=== PATIENT | female | born 1985 | race Caucasian/White ===

== ENCOUNTER 2022-01-20 12:52 | Outpatient (CLI) | payer OTHER, SELFPAY ==
--- NOTE | 2022-01-20 13:00 | CRLHL7_ITS ---
For Patients: As a result of the Century Cures Act, medical imaging exams and procedure reports are released immediately into your electronic medical record. You may view this report before your referring provider. If you have questions, please contact your health care provider. INDICATION: Third trimester scan, evaluate growth. Size less than dates. COMPARISON: 09/17/2021 TECHNIQUE: Real time rivero scale imaging of the fetus was performed. FINDINGS: Sonographic imaging demonstrates a single living intrauterine gestation. Fetus demonstrates a regular cardiac rate of 141 beats per minute. Fetus has a vertex position. The placenta lies anteriorly. Amniotic fluid volume appears normal and there is a single deepest vertical pocket: 3.5 cm. The estimated weight is 3033gm which lies at the 33rd %. On the prior OB ultrasound exam dated 09/17/2021 the estimated weight was at the 89th%. BPD 28th percentile. HC 6th percentile. AC 62nd percentile. FL 4th percentile. The HC/AC ratio measures 0.95 range (0.92-1.07). IMPRESSION: Sonographic gestational age 36 weeks 3 days and sonographic due date 02/14/2022. Sonographic age 10 days behind the clinical age. Estimated weight 33rd percentile. Abdominal circumference 62nd percentile. Dictated by Jamal Plummer MD @ 01/20/2022 3:00:40 PM (Electronically Signed)
== END 2022-01-20 12:53 | disposition home or self-care (01) ==
LOC: US 12:53
PROVIDERS: Visit Provider Advanced Practice Midwife
DX: O36.5930 Maternal care for other known or suspected poor fetal growth, third trimester, not applicable or unspecified (principal); Z3A.36 36 weeks gestation of pregnancy
CPT/HCPCS: 76816

== ENCOUNTER 2022-02-03 13:22 | Inpatient (IN) | payer OTHER, SELFPAY ==
[2022-02-03] VITALS (45 sets, daily range): BP systolic 118–185; BP diastolic 63–113; PULSE 69–94; TEMP 36.6–36.8; O2SAT 100; BMI 28.2
--- NOTE | 2022-02-03 12:15 | CRLHL7_ITS ---
For Patients: As a result of the Century Cures Act, medical imaging exams and procedure reports are released immediately into your electronic medical record. You may view this report before your referring provider. If you have questions, please contact your health care provider. INDICATION: Third trimester growth check. TECHNIQUE: Ultrasound OB pelvis transabdominal. Real-time rivero-scale imaging of the fetus was performed without stress testing. COMPARISON: January 20, 2022. FINDINGS: Sonographic imaging demonstrates a single living intrauterine gestation. Fetus demonstrates a regular cardiac rate of 131 beats per minute. Fetus has a cephalic orientation. Placenta is anterior. Biometric measurements: Biparietal diameter: 36 weeks 4 days. Head circumference: 37 weeks 3 days. Abdominal circumference: 37 weeks 0 days. Femur length: 36 weeks 5 days. Estimated weight: 3082, 13th percentile. Estimated ultrasound age by today`s measurements is 37 weeks 0 days with an estimated date of delivery February 24, 2022. Amniotic fluid volume appears low with the single deepest pocket of 1.7 cm. Gross body movements and tone were observed. Respiratory activity was not observed. IMPRESSION: Single viable intrauterine with a biophysical profile 4/8. respiratory activity and normal amniotic fluid volume not demonstrated. There is a 2 week discrepancy between ultrasound and clinical dating. Dictated by Nick Carmona MD @ 02/03/2022 1:47:40 PM (Electronically Signed)
--- NOTE | 2022-02-03 13:58 | W.PM.LDBA ---
Subjective History of Present Illness Time Seen by Provider: 13:45 Date Seen: 02/03/22 Narrative: Patient is being admitted to Labor and Delivery for an IOL. She is a 36 year old at 39.6 weeks gestation. Her full history and physical was dictated by Yolette Bowers on 01/15/22. Please see this for details. Pt was seen for u/s today. U/s for BPP and growth (for hx of measuring small for dates) were ordered for 41 weeks, but scheduled for today instead. BPP noted to be 4/8, with points off for breathing and fluid. Larger pockets of fluid were noted, but all contained cord. MARY 5.1, just barely not oligo, but SDP 1.7 indicating oligo. Growth also done, and EFW % down to 13 from 33 on 01/20/22. EFW 6 lb 13 oz. Yolette Valiente consulted Dr. Bhavesh [place], and decision made to proceed with IOL. Partner at bedside for support. Pt also desired a waterbirth, CNM reviewed concerns r/t change in growth and low fluid. Decision made to not proceed with waterbirth. OB Problem List 1. Anxiety Therapy referral 08/27/2021 Patient did not do counseling. On 11/12/2021: Reported anxiety was much better 2. Measuring small for dates at 37.1 weeks. US 01/20: EFW 33% H & P done 01/15/22 by Yolette Bowers OB - H&P: Exam Physical Exam: Vital signs: Temp Pulse BP Pulse Ox 98 F 82 157/99 H 100 02/03/22 13:38 02/03/22 13:47 02/03/22 13:47 02/03/22 13:37 Constitutional: Constitutional: no acute distress and cooperative Routine HEENT Exam: Head: Present normal inspection and normocephalic Routine Neck Exam: Neck: Present full ROM Routine Respiratory Exam: Respiratory: Present CTA bilaterally Routine Cardiovascular Exam: Cardiovascular: RRR Routine Abdominal Exam: Abdominal: Present soft (gravid) Routine Exam: External: Present normal external exam Detailed Labor and Delivery Exam: Patient Gravid: yes Dilation (cm): 0 (Fingertip) Effacement (%): 30 Cervix position: mid Consistency: firm Contraction frequency (min): 3 (3-6 minutes) Contraction intensity: Mild Fetus (Single): Station: 0 Heart Rate Baseline: 125 Monitor Accelerations: Present Monitor Decelerations: None Custodial Variability: Average (6-10) (Min - mod variability) Routine Extremities Exam: Extremities: Present full ROM and pedal edema (+1) Routine Back/Spine/Pelvis Exam: Back/Spine: full ROM Routine Skin Exam: Present intact Routine Neurological Exam: Present oriented X3 Routine Psychiatric Exam: Present normal affect OB - Problem Based A/P Additional Plan (1) : Status: Acute Plan Assessment: at 39.6 weeks GBS negative IOL for oilgo and BPP 4/8 r/o preeclampsia Measuring small for dates, but otherwise uncomplicated Plan: 1. Admit to L & D for IOL 2. Reviewed options for cervical ripening, including risks and benefits. Decision made to proceed with vaginal cytotec q 4 hours per protocol. Pt agrees with plan. 3. Pt candidate for analgesia of choice. Planning unmedicated at this time. 4. Desires waterbirth. Reviewed concerns r/t oligo, BPP, and rapid change in EFW percentile. Pt agrees to no waterbirth. 5. Continuous monitoring r/t oligo and BPP score. 6. IV access 7. BPs elevated on admit. Will draw labs and continue to monitor. 8. Anticipate progress to NVD. Delivery/Labor/Induction Plan Plan: induction Induction method: per misoprostol protocol (Vaginal, Q 4 hours)
[2022-02-03 15:04] LABS: Hematocrit 38.8 % (33.0-51.0); Hemoglobin* 12.8 gm/dL (12.0-16.0); Mean Corpuscular HGB Conc 33 gm/dL (32-36); Mean Corpuscular Hemoglobin 29 pg (26-34); Mean Corpuscular Volume 87 fL (80-100); Platelet Count* 217 K/uL (140-440); Red Blood Count 4.48 m/uL (4.00-5.20); White Blood Count* 8.96 K/uL (4.50-11.00)
[2022-02-03 15:07] LABS: Slide Review Reflex No
[2022-02-03 15:22] LABS: Creatinine Urine 240.6 mg/dL
[2022-02-03 15:28] LABS: INR 0.84 (0.91-1.10); Prothrombin Time 11.9 Seconds
[2022-02-03 15:30] LABS: Alanine Aminotransferase* 17 U/L (4-35); Aspartate Amino Transferase* 28 U/L (12-35); Blood Urea Nitrogen* 12 mg/dL (5-24); Creatinine* 0.6 mg/dL (0.5-1.5); Est. Creatinine Clearance* 123.68; Estimated Glomerular Filt Rate 121 ml/min; Fibrinogen* 466 mg/dL (200-450)
[2022-02-03 15:47] LABS: Total Protein Urine 1836 mg/dL
[2022-02-03 16:01] LABS: SARS PCR* Negative SARS-CoV-2 (Negative)
[2022-02-03] MEDS: miSOPROStoL 25 MCG/0.25 TABLET VAGINAL ×2 (16:35→21:08)
[2022-02-03] MEDS: LABETALOL HCL 5 MG/ML inj IVP ×2 (17:03→18:47)
--- NOTE | 2022-02-03 17:22 | PM.OBPNL ---
Pain Control Time Seen by Provider: 17:00 Date Seen: 02/03/22 Pain control: tolerating well Contractions Contraction frequency: 3 (3-5 minutes) Contraction pattern: Regular Contraction intensity: Mild (Pt states she is feeling them, but mild and tolerable) Pelvic Exam Comments: Exam deferred at this time. First dose of cytotec recently given Assessment and Plan Assessment: induction ongoing Plan: other (Elevated BP pathway started) Comments: Subjective: BP noted to be elevated repeatedly. Previously consulted w/ Dr. Elizalde about management plan based on BPs. Arrived on L & D and RNs already proceeding with orders from Dr. Elizalde r/t BPs. Reviewed plan w/ pt. Pt denies any headache, vision changes or epigastric pain. Partner has returned and is at her bedside for support. Pt remains comfortable at this time, but is feeling some mild ctx. Objective: Bps 150s-160s/90-100s. FHTs: 130, min - mod variability. Rare early or variable decel. Occ accels noted Ctx q 3-5 min, mild SVE: deferred Labs: AST & ALT WNL. P/C ratio elevated, 7.6 Platelets WNL Assessment & Plan Start BP elevated pathways per Dr. Elizalde's orders, including IV labetalol & starting magnesium sulfate. Pt aware of plan. Dr. Elizalde and OBs to assume care. Orders given to start cytotec as previously ordered.
[2022-02-03 21:38] LABS: Hematocrit 36.3 % (33.0-51.0); Hemoglobin* 11.8 gm/dL (12.0-16.0); Mean Corpuscular HGB Conc 33 gm/dL (32-36); Mean Corpuscular Hemoglobin 28 pg (26-34); Mean Corpuscular Volume 87 fL (80-100); Platelet Count* 206 K/uL (140-440); Red Blood Count 4.16 m/uL (4.00-5.20); White Blood Count* 8.44 K/uL (4.50-11.00)
[2022-02-03 21:49] LABS: Slide Review Reflex No
[2022-02-03 21:54] LABS: Alanine Aminotransferase* 19 U/L (4-35); Aspartate Amino Transferase* 26 U/L (12-35); Blood Urea Nitrogen* 10 mg/dL (5-24); Creatinine* 0.7 mg/dL (0.5-1.5); Est. Creatinine Clearance* 106.01; Estimated Glomerular Filt Rate 116 ml/min
[2022-02-03 21:55] LABS: Fibrinogen* 406 mg/dL (200-450); INR 0.89 (0.91-1.10); Prothrombin Time 12.5 Seconds
[2022-02-03 22:03] LABS: Magnesium* 5.2 mg/dL (1.5-2.6)
[2022-02-04] VITALS (38 sets, daily range): BP systolic 119–198; BP diastolic 68–125; PULSE 73–187; RESP 14–16; TEMP 36.4–36.7; O2SAT 91–100
[2022-02-04] MEDS: miSOPROStoL 25 MCG/0.25 TABLET VAGINAL ×2 (01:28→05:25)
--- NOTE | 2022-02-04 02:16 | PM.OBPNL ---
Pain Control Time Seen by Provider: 01:39 Date Seen: 02/04/22 Comments: I was contacted by RN with concern over decreased variability of heart rate tracing. Upon entering the Center, baseline was 120 with moderate variability. RN had atempted scalp stim, but was unable to reach the cervical os. Of note, patient then had markedly elevated BP to 170s systolic, after having had 6 hours below severe range. Single dose of labetalol was given. Contractions Monitor mode: External Contraction frequency: 3 (3-5 minutes) Contraction pattern: Regular Contraction intensity: Mild (Pt states she is feeling them, but mild and tolerable) Fetus (Single) status: Category l Comments: Around midnight, there was an episode of minimal variability. No decelerations, no accelerations. Baseline 120. Thereafter, variability increased and is now moderate. Assessment and Plan Assessment: prodromal labor Comments: woman at 40 weeks' gestation with severe preeclampsia. HELLP labs normal. Now s/p three doses of intravaginal cytotec for ripening. status is currently reassuring. Previous minimal variability was likely sleep cycle coupled with magnesium. Continue cytotec for ripening.
[2022-02-04] MEDS: ACETAMINOPHEN 500 MG TABLET 1000 MG PO (02:45)
[2022-02-04] MEDS: LACTATED RINGERS 1000 ML 1,000 ML 1200 ML IV (07:32)
[2022-02-04] MEDS: LABETALOL HCL 5 MG/ML inj IVP ×3 (07:42→08:35)
--- NOTE | 2022-02-04 07:48 | PM.OBPNL ---
Pain Control Time Seen by Provider: 07:48 Date Seen: 02/04/22 Comments: In a significant amount of pain w/ contractions. Requesting an epidural. There was a deceleration to the 90's that lasted approximately 6 minutes. I placed a scalp electrode. The heart rate had an acceleration to the 130's with placement of the FSE so status is reassuring. The patient is receiving a 500ml bolus of IVF for prior to the epidural. Stat labs ordered: AST, ALT, Creat, BUN, Fibrinogen, PT/INR, PTT, CBC w/o diff. Then repeat Q 6hr. Magnesium for seizure prophylaxis is at 2gm/hr. The patient has received 4 doses of vaginal cytotec. Contractions Monitor mode: External Contraction frequency: 2 (3-5 minutes) Contraction pattern: Regular Contraction intensity: Strong/Firm (Pt states she is feeling them, but mild and tolerable) Pelvic Exam Dilation (cm): 5 Effacement (%): 100 Station: 0 Comments: SROM at approximately 7:30am clear fluid Fetus (Single) Amniotic Membrane Status: SROM status: Category ll Assessment and Plan Assessment: active labor Plan: continue present management Comments: 36yo at 40w0d undergoing IOL for severe preeclampsia. FSE in place 500ml bolus for epidural BP 163/104 then 198/89 receiving IV labetalol per htn protocol Stat labs as above. Expect vaginal delivery.
[2022-02-04 08:25] LABS: Alanine Aminotransferase* 62 U/L (4-35); Aspartate Amino Transferase* 31 U/L (12-35); Blood Urea Nitrogen* 9 mg/dL (5-24); Creatinine* 0.6 mg/dL (0.5-1.5); Est. Creatinine Clearance* 123.68; Estimated Glomerular Filt Rate 121 ml/min
[2022-02-04 08:26] LABS: Fibrinogen* 470 mg/dL (200-450); INR 0.87 (0.91-1.10); Prothrombin Time 12.2 Seconds
[2022-02-04 08:30] LABS: Hematocrit 39.4 % (33.0-51.0); Hemoglobin* 12.9 gm/dL (12.0-16.0); Mean Corpuscular HGB Conc 33 gm/dL (32-36); Mean Corpuscular Hemoglobin 28 pg (26-34); Mean Corpuscular Volume 87 fL (80-100); Platelet Count* 223 K/uL (140-440); Red Blood Count 4.55 m/uL (4.00-5.20); White Blood Count* 10.23 K/uL (4.50-11.00)
[2022-02-04] MEDS: LIDOCAINE 1 % PF 30 ML INJECTION (08:37)
[2022-02-04 08:42] LABS: Slide Review Reflex No
[2022-02-04] MEDS: OXYTOCIN 30 unit/500 ML in NS 30 UNIT/500 ML BAG 300 UNIT IVPB (08:44)
[2022-02-04] MEDS: NIFEdipine 10 MG CAPSULE PO (08:49)
--- NOTE | 2022-02-04 09:28 | P.OBPRC_ITS ---
Procedure Delivery date: 02/04/22 Procedure Done: Global (Vaccuum assisted vaginal delivery. Global) Procedure Details: Vacuum assisted vaginal delivery. Events: Pre-Eclampsia, Labor Induction and Meconium Stained Fluid (Terminal meconium) Intrapartal Events: Labor Induction (4 doses of vaginal Cytotec) Induction method: per misoprostol protocol Delivery monitor: external uterine and internal FHT Route of delivery: vacuum extraction Indication for instrumentation: nonreassuring FHR tracing Episiotomy description: None Laceration description: Perineal - 2nd Degree Delivery repair: Vicryl Anesthesia type: Nitrous gas Disposition: floor Narrative: Kimberly is a 36 year-old G 1 P 0 now 2 admitted on 02/03/2022 at 4:00 p.m. at 39 Weeks, so 6 Days gestation for induction of labor due to severe preeclampsia Cervical exam on admission was 0 cm/50 % effaced/-2 station with membranes intact in vertex presentation. Contractions were every 2-6 minutes. he art rate demonstrated baseline 120s bpm with moderate variability, positive accelerations, negative decelerations; a category 1 tracing. S from occurred on 02/04/2022 at 7:15 a.m. with clear fluid. Labor Analgesia: Nitrous Pitocin: No Labor onset: 02/04/2022 at 4:00 a.m.. Complete: 02/04/2022 at 8:00 a.m.. Pushin02/04/2022 at 8:06 a.m.. heart tones during second stage were: Moderate variability and over the course of the 2nd stage there were recurrent late decelerations to the 70s. Verbal consent was obtained to perform a vacuum assisted vaginal delivery. Lidocaine jelly was applied to the vaginal canal. The kiwi vacuum was applied to the occiput 2-3 cm above the posterior fontanelle. The pressure was increased to the yellow portion of the pressure gauge. The was delivered over a second-degree laceration with the pressure increased to the green area during the contraction and pulling. The delivered with 1 pull/1 contraction, no pop offs total time pulling 70 seconds. At 8:44 a.m. a viable female infant delivered in vertex direct OA presentation over second-degree perineal laceration via vacuum assisted vaginal delivery. There was terminal meconium noted was immediately clamped clamped and cut and the handed to waiting nursing and pediatric staff for stabilization. Please see Verónica Domingos, CNNP. Infant weight 6 lb 3 oz, small for gestational age 5 at 1 minute, 8 at 5 minutes and 8 at 10 minutes, respectively. Shoulder dystocia: No. Nuchal cord: No Placenta delivered spontaneously and complete at 8:57 a.m. with a 3 vessel cord. Laceration(s): Second-degree perineal. Repaired using 3-0 Vicryl suture suture in a/the usual manner. Blood loss: 50 mL. Blood loss measurement type: Quantitative Sponge and needles counts are correct. Specimen: Placenta Mother and were stable after delivery. 's name: Malu Webster The patient is planning on breast feeding. Quinn Infant Infant Gender: Female presentation: vertex Placental Delivery Description: Spontaneous Cord Description: 3 Vessels OB Vag Delivery Procedures Additional Procedures ECV: No Cook Catheter Insertion: No NST: No D&C: No Laceration Repair: Yes Tubal Ligation : No Other: No
[2022-02-04] MEDS: LACTATED RINGERS 1000 ML 1,000 ML 75 ML IV ×2 (10:52→23:21)
[2022-02-04] MEDS: IBUPROFEN 600 MG TABLET PO ×2 (13:52→20:04)
[2022-02-04] MEDS: LABETALOL HCL 100 MG TABLET 200 MG PO ×2 (14:13→20:16)
[2022-02-04 14:15] LABS: Hematocrit 35.7 % (33.0-51.0); Hemoglobin* 11.8 gm/dL (12.0-16.0); Mean Corpuscular HGB Conc 33 gm/dL (32-36); Mean Corpuscular Hemoglobin 29 pg (26-34); Mean Corpuscular Volume 86 fL (80-100); Platelet Count* 214 K/uL (140-440); Red Blood Count 4.13 m/uL (4.00-5.20); White Blood Count* 14.31 K/uL (4.50-11.00)
[2022-02-04 14:18] LABS: Slide Review Reflex No
[2022-02-04 14:25] LABS: Creatinine* 0.6 mg/dL (0.5-1.5); Est. Creatinine Clearance* 5.85; Estimated Glomerular Filt Rate 121 ml/min
[2022-02-04 14:26] LABS: Alanine Aminotransferase* 20 U/L (4-35); Aspartate Amino Transferase* 36 U/L (12-35); Blood Urea Nitrogen* 10 mg/dL (5-24)
[2022-02-04 15:34] LABS: Magnesium* 6.7 mg/dL (1.5-2.6)
[2022-02-04 19:53] LABS: Hematocrit 31.6 % (33.0-51.0); Hemoglobin* 10.7 gm/dL (12.0-16.0); Immature Granulocytes Abs Auto 0.01 K/uL (0.00-0.30); Lymphocytes Percent Auto 15.4 % (20-44); Mean Corpuscular HGB Conc 34 gm/dL (32-36); Mean Corpuscular Hemoglobin 29 pg (26-34); Mean Corpuscular Volume 86 fL (80-100); Monocytes Percent Auto 4.5 % (0.0-11.0); Platelet Count* 188 K/uL (140-440); RDW Coefficient of Variation % 15.3 % (11.5-15.5); Red Blood Count 3.69 m/uL (4.00-5.20)
[2022-02-04 19:57] LABS: Slide Review Reflex No
[2022-02-04 20:08] LABS: Alanine Aminotransferase* 18 U/L (4-35); Aspartate Amino Transferase* 34 U/L (12-35); Blood Urea Nitrogen* 12 mg/dL (5-24); Creatinine* 0.7 mg/dL (0.5-1.5); Est. Creatinine Clearance* 106.01; Estimated Glomerular Filt Rate 116 ml/min
[2022-02-04 20:16] LABS: Magnesium* 6.5 mg/dL (1.5-2.6)
[2022-02-05] VITALS (7 sets, daily range): BP systolic 134–154; BP diastolic 83–96; PULSE 68–83; RESP 16–18; TEMP 36.6–37.1; O2SAT 95–97
[2022-02-05 04:20] LABS: Hematocrit 33.7 % (33.0-51.0); Hemoglobin* 11.2 gm/dL (12.0-16.0); Mean Corpuscular HGB Conc 33 gm/dL (32-36); Mean Corpuscular Hemoglobin 29 pg (26-34); Mean Corpuscular Volume 87 fL (80-100); Platelet Count* 163 K/uL (140-440); Red Blood Count 3.88 m/uL (4.00-5.20); White Blood Count* 7.58 K/uL (4.50-11.00)
[2022-02-05 04:21] LABS: Slide Review Reflex No
[2022-02-05] MEDS: IBUPROFEN 600 MG TABLET PO ×2 (04:25→14:40)
[2022-02-05 04:36] LABS: Aspartate Amino Transferase* 35 U/L (12-35); Creatinine* 0.6 mg/dL (0.5-1.5); Est. Creatinine Clearance* 123.68; Estimated Glomerular Filt Rate 121 ml/min
[2022-02-05 04:37] LABS: Alanine Aminotransferase* 18 U/L (4-35); Blood Urea Nitrogen* 10 mg/dL (5-24)
[2022-02-05] MEDS: LABETALOL HCL 100 MG TABLET 200 MG PO ×2 (08:51→14:40)
[2022-02-05] MEDS: CITALOPRAM HYDROBROMIDE 20 MG TABLET PO ×2 (08:52→08:53)
--- NOTE | 2022-02-05 08:58 | P.OBPN_ITS ---
OB - PN:Subj Subjective Time Seen by Provider: 08:58 Date Seen: 02/05/22 Interval history: The patient is a 36 year old G 1 P 1001 who was admitted to to the Center on 02/03/22 for induction of labor. She was diagnosed with severe preeclampsia intrapartum and started on magnesium sulfate infusion. She had an uncomplicated vacuum assisted vaginal delivery. She delivered a viable female infant. She is breast feeding. the patient has done well. She feels little tired, but denies headaches or right upper quadrant pain. Her urine output has begun to increase this morning. She still has a positive fluid balance, but is down 1 lb since yesterday. Patient comments OB post-: no complaints [place] status: and doing well [place] feeding status: exclusively OB - PN: Obj Exam Physical Exam: Vital signs: Temp Pulse Resp BP Pulse Ox 98.1 F 83 18 154/84 H 95 02/05/22 08:14 02/05/22 08:14 02/05/22 08:14 02/05/22 08:14 02/05/22 08:14 Constitutional: Constitutional: no acute distress and cooperative Routine Abdominal Exam: Abdominal: Present soft; Absent tenderness Fundus: Present firm Routine Extremities Exam: Extremities: Present pedal edema (1+) Routine Psychiatric Exam: Psychiatric: Present normal affect OB - PN: Obj Data Labs Labs: Laboratory Results - last 24 hr 02/04/22 02/04/22 02/04/22 14:03 14:03 14:03 WBC 14.31 H RBC 4.13 Hgb 11.8 L Hct 35.7 MCV 86 MCH 29 MCHC 33 RDW Coeff of Diane Plt Count 214 Neut % (Auto) Lymph % (Auto) [place] % (Auto) Eos % (Auto) Baso % (Auto) Neut # (Auto) Lymph # (Auto) [place] # (Auto) Eos # (Auto) Baso # (Auto) Abs Immat Gran (auto) BUN 10 Creatinine 0.6 Estimated Creat Clear 5.85 Estimated GFR 121 Magnesium 6.7 H* AST 36 H ALT 20 02/04/22 02/04/22 02/05/22 19:49 19:49 04:15 WBC 10.10 7.58 RBC 3.69 L 3.88 L Hgb 10.7 L 11.2 L Hct 31.6 L 33.7 MCV 86 87 MCH 29 29 MCHC 34 33 RDW Coeff of Diane 15.3 Plt Count 188 163 Neut % (Auto) 80.0 H Lymph % (Auto) 15.4 L [place] % (Auto) 4.5 Eos % (Auto) 0.0 Baso % (Auto) 0.0 Neut # (Auto) 8.10 H Lymph # (Auto) 1.60 [place] # (Auto) 0.50 Eos # (Auto) 0.00 Baso # (Auto) 0.00 Abs Immat Gran (auto) 0.01 BUN 12 Creatinine 0.7 Estimated Creat Clear 106.01 Estimated GFR 116 Magnesium 6.5 H* AST 34 ALT 18 02/05/22 04:15 WBC RBC Hgb Hct MCV MCH MCHC RDW Coeff of Diane Plt Count Neut % (Auto) Lymph % (Auto) [place] % (Auto) Eos % (Auto) Baso % (Auto) Neut # (Auto) Lymph # (Auto) [place] # (Auto) Eos # (Auto) Baso # (Auto) Abs Immat Gran (auto) BUN 10 Creatinine 0.6 Estimated Creat Clear 123.68 Estimated GFR 121 Magnesium AST 35 ALT 18 OB - PN: A/P Vaginal Delivery Assessment and Plan (1) Severe preeclampsia: Status: Acute (2) Vacuum-assisted delivery, delivered, current hospitalization: Status: Acute Plan The patient has just begun to diurese, but still has a positive fluid balance. I would recommend continuing the magnesium sulfate infusion for few more hours well watching urine output. Continue to monitor blood pressures. Plan day: 1 Plan: routine care
[2022-02-05] MEDS: FEXOFENADINE 180 MG TABLET PO (10:49)
[2022-02-05] MEDS: DOCUSATE SODIUM 100 MG CAPSULE PO (14:39)
[2022-02-05] MEDS: LABETALOL HCL 100 MG TABLET 300 MG PO (20:52)
[2022-02-06] MEDS: IBUPROFEN 600 MG TABLET PO ×3 (02:48→18:46)
[2022-02-06 03:05] VITALS: BP 168/103
[2022-02-06 03:19] VITALS: BP 155/91; PULSE 70; RESP 16; TEMP 36.4; O2SAT 97
[2022-02-06 06:22] LABS: Hematocrit 37.3 % (33.0-51.0); Hemoglobin* 11.8 gm/dL (12.0-16.0); Mean Corpuscular HGB Conc 32 gm/dL (32-36); Mean Corpuscular Hemoglobin 28 pg (26-34); Mean Corpuscular Volume 89 fL (80-100); Platelet Count* 220 K/uL (140-440); Red Blood Count 4.18 m/uL (4.00-5.20); White Blood Count* 8.13 K/uL (4.50-11.00)
[2022-02-06 06:30] LABS: Slide Review Reflex No
[2022-02-06 06:42] LABS: Alanine Aminotransferase* 16 U/L (4-35); Aspartate Amino Transferase* 31 U/L (12-35); Blood Urea Nitrogen* 11 mg/dL (5-24); Creatinine* 0.7 mg/dL (0.5-1.5); Est. Creatinine Clearance* 106.01; Estimated Glomerular Filt Rate 116 ml/min
[2022-02-06 08:15] VITALS: BP 155/102; PULSE 71; RESP 16; TEMP 37.2; O2SAT 97
[2022-02-06] MEDS: DOCUSATE SODIUM 100 MG CAPSULE PO (08:30)
[2022-02-06] MEDS: FEXOFENADINE 180 MG TABLET PO (08:30)
[2022-02-06] MEDS: CITALOPRAM HYDROBROMIDE 20 MG TABLET PO (08:31)
[2022-02-06] MEDS: LABETALOL HCL 100 MG TABLET 400 MG PO ×3 (08:31→21:01)
[2022-02-06] MEDS: NIFEdipine 30 MG TAB.ER.24 60 MG PO (08:31)
--- NOTE | 2022-02-06 11:24 | PM.OBPNVD1 ---
OB - PN:Subj Subjective Date Seen: 02/06/22 Interval history: The patient is a 36 year old G 1 P 1001 who was admitted to to the Center on 02/03/22 for induction of labor. She was diagnosed with severe preeclampsia intrapartum and started on magnesium sulfate infusion. She had an uncomplicated vacuum assisted vaginal delivery. She delivered a viable female infant. She is breast feeding. the patient has done well. She feels little tired, but denies headaches or right upper quadrant pain. She is now status post more than 24 hours of magnesium sulfate, stopped at 12:30 on 02/05/22. She is currently maintained on labetalol 400 mg t.i.d. and was newly given a dose of nifedipine ER 60 mg this morning. She has not received IV antihypertensives for greater than 24 hours, but did have elevated blood pressures throughout the night. She had 1 blood pressure of 168/103 at 3:00 a.m.. Repeat 14 minutes later was 155/91. Because of this, she did not receive IV labetalol. Infant is doing well. Kimberly is also feeling well. No difficulties with urination. No swelling in legs. Patient comments OB post-: pain well controlled [place] feeding status: exclusively OB - PN: Obj Exam Physical Exam: Vital signs: Temp Pulse Resp BP Pulse Ox 98.9 F 71 16 155/102 H 97 02/06/22 08:15 02/06/22 08:15 02/06/22 08:15 02/06/22 08:15 02/06/22 08:15 Narrative: General: Pleasant, no acute distress Heart: Regular rate and rhythm, no murmur or gallop Lungs: Clear to auscultation bilaterally Abdomen: Soft, nontender, fundus well below umbilicus Lower extremities: No edema or erythema OB - PN: Obj Data Labs Labs: Laboratory Results - last 24 hr 02/04/22 02/06/22 02/06/22 08:44 06:05 06:05 WBC 8.13 RBC 4.18 Hgb 11.8 L Hct 37.3 MCV 89 MCH 28 MCHC 32 Plt Count 220 BUN 11 Creatinine 0.7 Estimated Creat Clear 106.01 Estimated GFR 116 AST 31 ALT 16 Surg PTH (Off-Site) See Scanned Report OB - PN: A/P Vaginal Delivery Assessment and Plan (1) Severe preeclampsia: Problem details: s/p magnesium sulfate. Normal HELLP labs today. BPs nearly severe range overnight. Will maintain inpatient status. Monitor BPs. Continue labetalol and nifedipine. Would consider another dose of nifedipine ER 30 mg tonight depending on control. Status: Acute (2) Vacuum-assisted delivery, delivered, current hospitalization: Status: Acute
[2022-02-06 11:30] VITALS: BP 145/92; PULSE 75; RESP 16; TEMP 37; O2SAT 96
[2022-02-06 15:50] VITALS: BP 140/91; PULSE 80; RESP 16; TEMP 36.8; O2SAT 96
[2022-02-06 20:17] VITALS: BP 147/90; PULSE 80; RESP 16; O2SAT 97
[2022-02-07 00:37] VITALS: BP 146/93; PULSE 72; RESP 16; O2SAT 97
[2022-02-07 04:10] VITALS: BP 132/92; PULSE 84; RESP 16; TEMP 36.7; O2SAT 97
[2022-02-07] MEDS: DOCUSATE SODIUM 100 MG CAPSULE PO (08:25)
[2022-02-07] MEDS: NIFEdipine 30 MG TAB.ER.24 60 MG PO (08:25)
[2022-02-07] MEDS: LABETALOL HCL 100 MG TABLET 400 MG PO (08:25)
[2022-02-07] MEDS: FEXOFENADINE 180 MG TABLET PO (08:26)
[2022-02-07] MEDS: CITALOPRAM HYDROBROMIDE 20 MG TABLET PO (08:26)
[2022-02-07 09:15] VITALS: BP 116/83; PULSE 83; RESP 18; TEMP 37
--- NOTE | 2022-02-07 09:43 | PM.OBDSCS1 ---
DS: Providers Provider Date Seen: 02/07/22 Date of admission: 02/03/22 13:22 Primary care physician: Not a Local Provider Admitting Clinician: Carmen Bowers CNM Exam Const: Vital Signs, click to edit/add: Vital Signs - 24 hr 02/06/22 11:30 02/06/22 15:50 02/06/22 20:17 Temperature 98.6 F 98.2 F Pulse Rate [Blood Pressure Cuff] 75 80 80 Respiratory Rate 16 16 16 Blood Pressure [Le ft Arm] 145/92 H 140/91 H 147/90 H Pulse Oximetry 96 96 97 02/07/22 00:37 02/07/22 04:10 02/07/22 09:15 Temperature 98.1 F 98.6 F Pulse Rate [Blood Pressure Cuff] 72 84 83 Respiratory Rate 16 16 18 Blood Pressure [Le ft Arm] 146/93 H 132/92 H 116/83 Pulse Oximetry 97 97 Neck & C-Spine: Common normals: no JVD Resp: Common normals: normal respiratory effort, no use of accessory muscles and clear to auscultation bilaterally Auscultation: clear to auscultation bilaterally Cardio: Common normals: no JVD, regular rate and peripheral pulses 2+ throughout Rate: regular rate Peripheral pulses: pulses 2+ throughout GI: Common normals: non-tender Neuro: Common normals: CN's II-XII intact bilaterally and moves all extremities Psych: Common normals: mental status grossly normal, cooperative, affect normal and speech normal Speech: normal speech OB - DS: Summary Hospital Course Hospital Course: Kimberly is a 36 year old, now para 1001. She was admitted to the Center at 40 weeks GA for IOL because of BPP of 4/8, with oligohydramnios. Induction began with misoprostol. A viable female Malu was born with vacuum assistance, at 40w1d GA. Patient had a second-degree perineal laceration. Baby is breast feeding. , Kimberly was on magnesium sulfate for 24h. She has been treated with labetalol 400mg PO TID and daily nifedipine ER 60mg PO. She is diuresing very well; output is -3000 the past day. BP are trending down. Her SBP the past day ranged from 116-155, DBP from 83-102; lowest pressures obtained in most recent reading. Pain very well controlled. She has not needed analgesics in the past day. Lochia has been decreasing, without clots. Bowel and bladder function are both normal. Mood is stable, with decreased anxiety. She continues citatalopram 20mg PO QD. She is rubella immune. She received Tdap vaccine. [place] Infant Gender: Female Time Spent with Patient Time attestation: Total time spent providing and/or coordinating discharge services: Discharge Plan Discharge Disposition: Home, Self-Care Date of Admission: 02/03/22 13:22 Attending Provider on Discharge: Abebe Johnson Primary Care Provider: Provider,Not a Local Condition: Stable Anticipated Discharge Date/Time: 02/07/22 10:05 Discharge Medications: New docusate sodium 100 mg Capsule 100 mg PO DAILY 28 Days Qty: 100 0RF ibuprofen 600 mg Tablet 600 mg PO Q6H PRN14 Days Qty: 30 0RF fexofenadine 180 mg Tablet 180 mg PO DAILY Qty: 0 0RF nifedipine 60 mg tablet extended release 60 mg PO DAILY Qty: 60 3RF Continued fexofenadine 180 mg tablet 180 mg PO DAILY 0RF prenat.vits,kristopher,lul-wwcx-uwffz Tablet 1 tab PO QDAY 0RF citalopram 20 mg tablet 20 mg PO DAILY 0RF lorazepam 0.5 mg tablet 0.5 mg PO BID PRN0RF Rx Instructions: take 1/2 to 1 tab po up to bid prn severe anxiety Discontinued famotidine 40 mg tablet 40 mg PO .Bedtime 0RF ferrous sulfate 325 mg (65 mg iron) tablet 325 mg PO DAILY 0RF Discharge Orders: Discharge Order (Routine); Ordered 02/07/22 Ordered By: Abebe Johnson Patient Education: Preeclampsia and Eclampsia After Delivery (GEN), OB Vaginal/Breast Feeding Activity Restrictions/Additional Instructions: Discharge instructions were reviewed with the patient including signs and symptoms of infection and home going medications. Nothing vaginally for 6 weeks: no tampons or intercourse. Lifting Restrictions: none Do not drive while taking narcotic pain medication(s). Off Work or School for 6 weeks. Symptoms to report to doctor: -Bleeding that saturates more than one pad per hour ?-Passing clots larger than the size of a golf ball ?-Pain not relieved by prescribed medication ?-Fever above 100.4 degrees Fahrenheit ?-A foul vaginal odor ?-Difficulty in emotions, mood and functions ?-Thoughts of hurting yourself and/or ?-Painful, reddened area in your breast ?-Any drainage, redness or tenderness in your IV/epidural site ?-Severe headache that doesn't improve after taking medications ?-Changes in vision, including temporary loss of vision, blurred vision, and/or light sensitivity ?-Upper abdominal pain (usually under ribs on the right side) ?-Decrease in urination or painful, frequent urinating ?-Chest pain ?-Shortness of breath ?-Tenderness or pain with redness and/swelling in the calf(s) of your leg Follow Up in the Women's health clinic within 3 working days for a BP check. Optional 2 week visit: discuss concerns, review control options and screen for depression/anxiety. 6 week visit for annual physical exam. consultation services are available to all mothers and babies for the first year after delivery.? To make an appointment, please call [phone]. Activity Level: Activity as Tolerated Discharge Diet: Regular Follow Up Appointments: Carmen Bowers CNM [Certified Nurse Farm Management Agent] - Geno Ketn CNM [Certified Nurse Farm Management Agent] - Ashleigh Murray MD [Staff Physician] - Provider,Not a Local [Primary Care Provider] - Forms: MyHealth Info Instructions Discharge Comment: follow up Thursday for BP check with clinic RN
== END 2022-02-07 12:00 | disposition home or self-care (01) | DRG 807 ==
LOC: OB 14:12
PROVIDERS: Obstetrics & Gynecology; Admitting Provider Advanced Practice Midwife; Visit Provider Advanced Practice Midwife
DX: O14.14 Severe pre-eclampsia complicating childbirth (principal); Z37.0 Single live birth; O70.1 Second degree perineal laceration during delivery; O76 Abnormality in fetal heart rate and rhythm complicating labor and delivery; O77.0 Labor and delivery complicated by meconium in amniotic fluid; Z3A.39 39 weeks gestation of pregnancy
CPT/HCPCS: 36415; 59200; 76816; 76819; 82565; 83735; 84156; 84450; 84460; 84520; 85018; 85025; 85027; 85384; 85610; 86850; 86900; 86901; 87635; 88307; A9270; J2001; J3475; J7120

== ENCOUNTER 2023-03-30 12:41 | Outpatient (CLI) | payer OTHER, SELFPAY ==
--- NOTE | 2023-03-30 13:00 | CRLHL7_ITS ---
For Patients: As a result of the Cures Act, medical imaging exams and procedure reports are released immediately into your electronic medical record. You may view this report before your referring provider. If you have questions, please contact your health care provider. INDICATION: First trimester scan, establish dates. COMPARISON: None. TECHNIQUE: Real-time rivero-scale imaging of the pelvis was performed. FINDINGS: Sonographic imaging demonstrates a single living intrauterine gestation. The embryo demonstrates a regular cardiac rate measuring 176 beats per minute. The embryo`s crown-rump length measurement of 2.1 cm corresponds to a gestational age of 8 weeks 5 days with a sonographic due date of 11/04/2023. There is a normal-appearing yolk sac. There are no gross abnormalities noted within the embryo at this early state of development. The gestational sac has a normal appearance. There is an inferior perigestational hemorrhage measuring 1.4 x 0.9 x 1.5 cm. The amount of fluid within the sac appears appropriate for gestational age. The cervix is closed. The myometrium appears normal. Normal left ovary. Corpus luteum ovarian cyst measuring 4.1 x 2.6 x 2.8 cm. There are no suspicious fluid collections noted in the cul-de-sac. IMPRESSION: Single living intrauterine with sonographic gestational age 8 weeks 5 days and sonographic due date 11/04/2023. Lower uterine segment subchorionic hemorrhage measuring 1.4 x 0.9 x 1.5 cm. Corpus luteum ovarian cyst measuring 4.1 x 2.6 x 2.8 cm. Dictated by Jamal Plummer MD @ 03/31/2023 5:56:07 AM (Electronically Signed)
== END 2023-03-30 12:42 | disposition home or self-care (01) ==
LOC: US 12:44
PROVIDERS: PCP Registered Nurse; Visit Provider Advanced Practice Midwife
DX: Z34.91 Encounter for supervision of normal pregnancy, unspecified, first trimester (principal); Z3A.08 8 weeks gestation of pregnancy
CPT/HCPCS: 76817; 82565; 82570; 84156; 84450; 84460; 84520; 84550; 86592; 86703; 86762; 86787; 86803; 86850; 86900; 86901; 87086; 87340

== ENCOUNTER 2023-05-18 11:10 | Outpatient (CLI) | payer OTHER, SELFPAY | END 2023-05-18 11:11 | disposition home or self-care (01) | LOC: NFLDREF 05-21 05:38 | PROVIDERS: PCP Registered Nurse; Referring Provider Registered Nurse; Visit Provider Advanced Practice Midwife | DX: O14.12 Severe pre-eclampsia, second trimester (principal); Z3A.16 16 weeks gestation of pregnancy | CPT/HCPCS: 82570; 84156 ==

== ENCOUNTER 2023-06-15 07:12 | Outpatient (CLI) | payer OTHER, SELFPAY ==
--- NOTE | 2023-06-15 07:15 | CRLHL7_ITS ---
For Patients: As a result of the Century Cures Act, medical imaging exams and procedure reports are released immediately into your electronic medical record. You may view this report before your referring provider. If you have questions, please contact your health care provider. INDICATION: Evaluate anatomy. COMPARISON: 03/30/2023 TECHNIQUE: Real time rivero scale imaging of the fetus was performed as well as color Doppler analysis of the umbilical vessels. FINDINGS: Sonographic imaging demonstrates a single living intrauterine gestation. Fetus demonstrates a regular cardiac rate of 154 beats per minute. Fetus has a vertex position. The placenta lies posteriorly without evidence of placenta previa. Placental edge 5.0 cm from the internal cervical os. Amniotic fluid volume appears normal. Single deepest vertical pocket: 5.2 cm. The cervix is closed and measures 4.1 cm in length. The composite ultrasound gestational age is calculated at 19 weeks 4 days with an estimated sonographic due date of 11/05/2023. The estimated weight is 312 grams which lies at the 33rd %. The following biometric measurements were obtained: Biparietal diameter: 4.3 cm/19 weeks 1 day 16th% Head circumference: 17.0 cm/19 weeks 4 days 26th% Abdominal circumference: 14.9 cm/20 weeks 1 day 49th% Femur length: 3.1 cm/19 weeks 3 days 24th% The HC/AC ratio measures: 1.15 range (1.08-1.26) On anatomic survey, there is a normal appearance of the cerebral ventricles, cavum septi pellucidi, cisterna magna and cerebellum. The nose, lips, and facial profile appear normal. The cervical, thoracic and lumbar spine are well visualized and appear normal. There is a normal four-chamber heart view and the left and right ventricular outflow tracts appear normal. The diaphragm and stomach appear normal. The kidneys and bladder also appear normal. Renal pelvis measures 2 millimeters bilaterally, considered normal. There is a normal three-vessel cord and there is a marginal cord insertion site. The four extremities appear normal. IMPRESSION: Concordance of clinical and sonographic dating. No intrinsic abnormalities noted on anatomic survey. Marginal placental cord insertion. Dictated by Jamal Plummer MD @ 06/15/2023 8:58:40 AM (Electronically Signed)
== END 2023-06-15 07:13 | disposition home or self-care (01) ==
LOC: US 07:13
PROVIDERS: PCP Registered Nurse; Visit Provider Advanced Practice Midwife
DX: Z34.92 Encounter for supervision of normal pregnancy, unspecified, second trimester (principal); Z3A.19 19 weeks gestation of pregnancy
CPT/HCPCS: 76805

== ENCOUNTER 2023-08-13 13:45 | Outpatient (CLI) | payer BC, SELFPAY ==
--- NOTE | 2023-08-13 14:00 | CRLHL7_ITS ---
For Patients: As a result of the Century Cures Act, medical imaging exams and procedure reports are released immediately into your electronic medical record. You may view this report before your referring provider. If you have questions, please contact your health care provider. INDICATION: growth and f/u on marginal placenta COMPARISON: 06/15/2023 TECHNIQUE: Real time rivero scale imaging of the fetus was performed. FINDINGS: Sonographic imaging demonstrates a single living intrauterine gestation. Fetus demonstrates a regular cardiac rate of 147 beats per minute. Fetus has a vertex position. The placenta lies posteriorly. Amniotic fluid volume appears normal and there is a single deepest vertical pocket: 5.9 cm. The estimated weight is 1286gm which lies at the 51st %. On the prior OB ultrasound exam dated 06/15/2023 the estimated weight was at the 33rd%. BPD 82nd percentile. HC 56th percentile. AC 62nd percentile. FL 23rd percentile. The HC/AC ratio measures 1.10 range (0.99-1.21). IMPRESSION: Sonographic gestational age 29 weeks 1 day and sonographic due date of 10/28/2023. Sonographic age is 5 days ahead of the clinical age. Estimated weight 51st percentile. Abdominal circumference 62nd present. Marginal cord insertion into the placenta again noted. Dictated by Jamal Plummer MD @ 08/13/2023 2:50:57 PM (Electronically Signed)
== END 2023-08-13 13:46 | disposition home or self-care (01) ==
LOC: US 13:45
PROVIDERS: PCP Registered Nurse; Visit Provider Physician Assistant
DX: Z34.93 Encounter for supervision of normal pregnancy, unspecified, third trimester (principal); Z3A.28 28 weeks gestation of pregnancy
CPT/HCPCS: 76816; 82728; 86592

== ENCOUNTER 2023-09-10 13:52 | Outpatient (CLI) | payer BC, SELFPAY ==
--- NOTE | 2023-09-10 14:00 | US_ITS ---
Patient: IAN SOSA Facility:?[facility] Patient ID:?[id number] Site Patient ID:?[id number]. Site :?1985 Study:?US-OB Pelvis GROWTH AND BPP-09/10/2023 2:44:12 PM Ordering Physician:SAMY VALDERRAMA Final Report: INDICATION: Check growth. Marginal cord insertion. TECHNIQUE: Limited transabdominal two-dimensional rivero-scale ultrasound examination. COMPARISON: None FINDINGS: There is a living fetus in cephalic lie with gestational age of 32 weeks 3 days by LMP and 33 weeks 3 days by today`s measurements. EDC based on LMP is 11/02/2023. BPD: 8.3 cm, 33 weeks 3 days Head circumference: 30.7 cm, 34 weeks 1 day Abdominal circumference: 29.6 cm, 33 weeks 4 days Femur length: 6.3 cm, 32 weeks 4 days The weight is estimated at 2170 grams, the 69th percentile. The biophysical profile is 8/8. The heart rate is measured at 138 beats per minute and the rhythm appears regular. There is new mild polyhydramnios with single deep pocket of 8.4 cm. MARY is 27 cm. The placenta is posterior and superior to the cervical os. There is no evidence of previa. IMPRESSION: 1. Living fetus in cephalic lie with gestational age of 32 weeks 3 days by LMP and 33 weeks 3 days by today`s measurements. EDC based on LMP is 11/02/2023. 2. weight estimated at 2170 grams, the 69th percentile. 3. Biophysical profile score is 8/8. 4. New mild polyhydramnios with single deepest pocket of 8.4 cm and MARY of 27 cm. Dictated by Easton Ta MD @ 09/11/2023 8:39:03 AM ----- ADDENDUM ----- An image demonstrating the relationship of the placental cord insertion to the placenta margin was not provided. Dictated by Easton Ta MD @ Sep 11 2023 8:40AM Signed by:?Easton Ta MD @09/11/2023 8:39:03 AM (Electronic Signature)
== END 2023-09-10 13:53 | disposition home or self-care (01) ==
LOC: US 13:53
PROVIDERS: PCP Registered Nurse; Visit Provider Advanced Practice Midwife
DX: O43.193 Other malformation of placenta, third trimester (principal); O40.3XX0 Polyhydramnios, third trimester, not applicable or unspecified; Z3A.32 32 weeks gestation of pregnancy
CPT/HCPCS: 76816; 76819

== ENCOUNTER 2023-09-16 15:48 | Outpatient (CLI) | payer BC, SELFPAY ==
--- NOTE | 2023-09-16 16:00 | US_ITS ---
Patient: IAN SOSA Facility:?[facility] Patient ID:?[id number] Site Patient ID:?[id number]. Site :?1985 Study:?US-OB Pelvis OB BPP-09/16/2023 4:36:11 PM Ordering Physician:MAHENDRA PINON Final Report: INDICATION: Polyhydramnios. COMPARISON: OB ultrasound 09/10/2023. TECHNIQUE: Ultrasound OB pelvis biophysical profile. Real time rivero scale imaging of the fetus was performed without non-stress testing. FINDINGS: Sonographic imaging demonstrates a single living intrauterine gestation. The fetus demonstrates a regular cardiac rate of 138 beats per minute. The fetus has a cephalic orientation. The placenta lies posteriorly. There is polyhydramnios with single deepest pocket measuring 9.3 cm and the amniotic fluid index measuring 26.7 cm (2/2). The fetus was active (2/2). There was normal flexion and extension of the trunk and extremities (2/2). The fetus demonstrated normal breathing movements (2/2). IMPRESSION: 1. Normal biophysical profile score 8 out of 8. 2. Polyhydramnios with MARY measuring 26.7 cm. Dictated by Felicia Tesfaye MD @ 09/17/2023 4:10:53 AM Signed by:?Felicia Tesfaye MD @09/17/2023 4:10:53 AM (Electronic Signature)
== END 2023-09-16 15:49 | disposition home or self-care (01) ==
LOC: US 15:49
PROVIDERS: PCP Registered Nurse; Visit Provider Advanced Practice Midwife
DX: O40.9XX0 Polyhydramnios, unspecified trimester, not applicable or unspecified (principal)
CPT/HCPCS: 76819

== ENCOUNTER 2023-09-24 16:04 | Outpatient (CLI) | payer BC, SELFPAY | END 2023-09-24 16:05 | disposition home or self-care (01) | LOC: NFLDREF 09-30 12:21 | PROVIDERS: PCP Registered Nurse; Referring Provider Registered Nurse; Visit Provider Advanced Practice Midwife | DX: O40.3XX0 Polyhydramnios, third trimester, not applicable or unspecified (principal); O09.93 Supervision of high risk pregnancy, unspecified, third trimester; O09.523 Supervision of elderly multigravida, third trimester | CPT/HCPCS: 82728 ==

== ENCOUNTER 2023-10-02 13:53 | Outpatient (CLI) | payer BC, SELFPAY ==
--- NOTE | 2023-10-02 14:00 | US_ITS ---
Patient: IAN SOSA Facility:?[facility] Patient ID:?[id number] Site Patient ID:?[id number]. Site :?1985 Study:?US-OB Pelvis BPP W GROWTH-10/02/2023 2:32:01 PM Ordering Physician:SAMY VALDERRAMA Final Report: INDICATION: Polyhydramnios. COMPARISON: OB ultrasound 09/16/2023. TECHNIQUE: Real time rivero scale imaging of the fetus was performed as well as color Doppler analysis of the umbilical vessels. FINDINGS: Sonographic imaging demonstrates a single living intrauterine gestation. The fetus has a regular cardiac rate of 159 beats per minute. The fetus has a cephalic orientation. The placenta lies posteriorly without evidence of placenta previa. The amniotic fluid index measures 25.0 cm. The composite ultrasound gestational age is calculated at 36 weeks 3 days with an estimated sonographic due date of 10/27/2023. The estimated weight is 2999 grams which lies at the 79th percentile. The following biometric measurements were obtained: Biparietal diameter: 8.89 cm (36 weeks 0 days) (67th percentile) Head circumference: 32.51 cm (36 weeks 6 days) (49th percentile) Abdominal circumference: 33.23 cm (37 weeks 1 day) (92nd percentile) Femur length: 7.00 cm (35 weeks 6 days) (53rd percentile) The HC/AC ratio measures: 0.98 (range 0.92-1.07) ----- Biophysical profile: Single deepest pocket measures 8.1 cm (2/2). The fetus was active (2/2). There was normal flexion and extension of the trunk and extremities (2/2). The fetus demonstrated normal breathing movements (2/2). IMPRESSION: 1. Single living intrauterine gestation in cephalic position with heart rate 159 beats per minute. 2. Ultrasound gestational age 36 weeks 3 days with sonographic due date 10/27/2023. The clinical gestational age is 35 weeks 4 days. 3. Estimated weight is 79th percentile. 4. Borderline polyhydramnios with MARY measuring 25.0 cm. 5. Normal biophysical profile score 8 out of 8. Dictated by Felicia Tesfaye MD @ 10/04/2023 11:51:31 PM Signed by:?Felicia Tesfaye MD @10/04/2023 11:51:31 PM (Electronic Signature)
== END 2023-10-02 13:54 | disposition home or self-care (01) ==
LOC: US 13:54
PROVIDERS: PCP Registered Nurse; Visit Provider Advanced Practice Midwife
DX: O40.3XX0 Polyhydramnios, third trimester, not applicable or unspecified (principal); Z3A.36 36 weeks gestation of pregnancy
CPT/HCPCS: 76816; 76819

== ENCOUNTER 2023-10-06 11:05 | Outpatient (RCR) | payer BC, SELFPAY ==
--- NOTE | 2023-09-30 11:11 | ONC.NURNOTE ---
Dx: iron deficiency anemia
--- NOTE | 2023-09-30 12:40 | URNOTE ---
Request received for authorization for?Iron Dextran (InFed) (J1750). Prior authorization is not required per [facility] [id number], date range:09/29/2023 to 01/21/2024.
[2023-10-06 11:14] VITALS: BP 115/77; PULSE 106; RESP 16; TEMP 36.7; O2SAT 99
[2023-10-06] MEDS: SODIUM CHLORIDE 0.9 % (FLUSH) 10 ML SYRINGE IVF (11:32)
[2023-10-06] MEDS: 0.9 % SODIUM CHLORIDE 250 ml IV (11:32)
[2023-10-06] MEDS: IRON DEXTRAN COMPLEX 25 MG in 0.9 % SODIUM CHLORIDE 100 ml 100 ML 400 MG IVPB (11:59)
[2023-10-06 12:28] VITALS: BP 104/69; PULSE 89; RESP 16; TEMP 36.4; O2SAT 97
[2023-10-06] MEDS: IRON DEXTRAN COMPLEX 975 MG in 0.9 % SODIUM CHLORIDE 250 ml 250 ML 270 MG IVPB (13:30)
[2023-10-06 14:37] VITALS: BP 105/67; PULSE 86; RESP 18; TEMP 36.4; O2SAT 96
[2023-10-06 15:12] VITALS: BP 104/61; PULSE 87; RESP 16; TEMP 36.3; O2SAT 98
== END 2024-04-03 23:59 | disposition home or self-care (01) ==
LOC: CCIC 11:05
PROVIDERS: Visit Provider Advanced Practice Midwife
DX: D50.9 Iron deficiency anemia, unspecified (principal)
CPT/HCPCS: 96365; 96376; J1750; J7050

== ENCOUNTER 2023-10-08 13:52 | Outpatient (CLI) | payer BC, SELFPAY ==
--- NOTE | 2023-10-08 13:57 | US_ITS ---
Patient: IAN SOAS Facility:?[facility] Patient ID:?[id number] Site Patient ID:?[id number]. Site :?1985 Study:?US-OB Pelvis OB BPP-10/08/2023 2:52:09 PM Ordering Physician:MAHENDRA PINON CNM Final Report: OBSTETRIC ULTRASOUND INDICATION: Polyhydramnios. JOSHUA by LMP: 11/02/2023. GA: 36w, 3d. COMPARISON: 10/02/2023, 09/16/2023. Gestation: Single. CERVIX: Not visualized. POSITIONING: Vertex. AMNIOTIC FLUID: 26.1 cm MARY, 8.2 cm SDP. BIOPHYSICAL PROFILE: Total score: 8. Gross body movements: 2. tone: 2. Respiratory activity: 2. Amniotic fluid: 2. (SDP N: Increase 2 x 1 cm) PLACENTA: Technique: Transabdominal. PLACENTA POSITION: Fundal posterior. IMPRESSION: 1. Biophysical profile score 8/8. 2. Polyhydramnios. Single deepest pocket measures 8.2 cm, MARY measures 26.1 cm. Doreen Allen M.D. Diagnostic/Breast Radiologist [email or web address] ANILAP/brittany / be/Dictated by: Doreen Allen MD @ 10/09/2023 7:33:00 PM Signed by:?Doreen Allen MD @10/11/2023 5:34:09 PM (Electronic Signature)
== END 2023-10-08 13:53 | disposition home or self-care (01) ==
LOC: US 13:53
PROVIDERS: Visit Provider Advanced Practice Midwife
DX: O40.3XX0 Polyhydramnios, third trimester, not applicable or unspecified (principal); Z3A.36 36 weeks gestation of pregnancy
CPT/HCPCS: 76819; 87081; 87653

== ENCOUNTER 2023-10-13 12:49 | Outpatient (CLI) | payer BC, SELFPAY ==
--- NOTE | 2023-10-13 13:00 | US_ITS ---
Patient: IAN SOSA Facility:?[facility] Patient ID:?[id number] Site Patient ID:?[id number]. Site :?1985 Study:?US-OB Pelvis OB BPP-10/13/2023 1:31:12 PM Ordering Physician:YUDITH BAZAN Final Report: OBSTETRICAL ULTRASOUND LIMITED - BIOPHYSICAL PROFILE, 10/13/2023 INDICATION: Polyhydramnios. LMP: 01/26/2023 JOSHUA by LMP: 11/02/2023 Gestational age: 37 weeks 1 day TECHNIQUE: Transabdominal obstetrical ultrasound. FINDINGS: Gestation: Single Cervix: Not visualized positioning: Vertex Amniotic fluid: 8.7 cm SDP MARY: 19.0 cm BIOPHYSICAL PROFILE: Gross body movements: 2 tone: 2 Respiratory activity: 2 Amniotic fluid SDP: 2 Total score: 8 Placenta position: Posterior heart rate: 150 bpm IMPRESSION: 1. Normal biophysical profile of 8/8. 2. Amniotic fluid SDP 8.7, MARY 19.0. Polyhydramnios. BARBARA ARREAGA M.D. Body/Diagnostic Radiologist [email or web address] NJG:abigail D& Transcribed: 11:[address]/Dictated by: Barbara Arreaga MD @ 10/14/2023 9:47:00 AM Signed by:?Barbara Arreaga MD @10/14/2023 12:26:36 PM (Electronic Signature)
== END 2023-10-13 12:50 | disposition home or self-care (01) ==
PROVIDERS: Visit Provider Physician Assistant
DX: O40.9XX0 Polyhydramnios, unspecified trimester, not applicable or unspecified (principal)
CPT/HCPCS: 76819

== ENCOUNTER 2023-10-20 13:59 | Outpatient (CLI) | payer BC, SELFPAY ==
--- NOTE | 2023-10-20 14:00 | US_ITS ---
Patient: IAN SOSA Facility:?[facility] Patient ID:?[id number] Site Patient ID:?[id number]. Site :?1985 Study:?US-OB Pelvis OB BPP & F/U GROWTH-10/20/2023 2:51:18 PM Ordering Physician:?MAHENDRA ANDRADE CNM Final Report: INDICATION: Polyhydramnios TECHNIQUE: Real time rivero scale imaging of the fetus was performed. COMPARISON: 10/13/2023 FINDINGS: Sonographic imaging demonstrates a single living intrauterine gestation. Fetus demonstrates a regular cardiac rate of 138 beats per minute. Fetus has a vertex position. The placenta lies posteriorly. Amniotic fluid volume appears normal and there is a single deepest pocket of 5.9 cm. MARY 19.2 cm. The estimated weight is 3618gm which lies at the 80th %. On the prior OB ultrasound dated 10/02/2023 the estimated weight was at the 79th percentile. BPD 58th percentile. HC 40th percentile. AC 96th percentile. FL is 30th percentile. The fetus was active and demonstrated normal breathing movements. There was normal flexion and extension of the trunk and extremities. IMPRESSION: Normal biophysical profile score 8/8. Sonographic gestational age 38 weeks 2 days and sonographic due date 11/01/2023. Good correlation with dates. Normal interval growth. Estimated weight 80th percentile. Abdominal circumference 96th percentile. Dictated by Jamal Plummer MD @ 10/22/2023 6:07:22 AM Signed by:?Jamal Plummer MD @10/22/2023 6:07:22 AM (Electronic Signature)
--- OUTSIDE RECORDS SUMMARY | 2023-10-20 14:01 | XMS_ITS | Referral Summary ---
Author Name Unknown Organization [facility] Address [address] [place] [id number] Care Team Providers Care Roller Engraver Name Role Phone Jany Slade MD Primary Care Provider Unavailabl e Allergies No known active allergies Medications Medication Sig Dispensed Refills Start Date End Date Status fexofenadine (FREDI) 180 MG tablet Take 180 mg by mouth 0 09/12/2019 Active Active Problems No known active problems Social History Tobacco Use Types Packs/Day Years Used Date Smoking Tobacco: Never Smokeless Tobacco: Never Sex and Gender Information Value Date Recorded Sex Assigned at Not on file Gender Identity Not on file Sexual Orientation Not on file Last Filed Vital Signs Vital Sign Reading Time Taken Comments Blood Pressure 124/74 03/15/2020 2:20 PM CDT Pulse 99 03/15/2020 2:20 PM CDT Temperature 36.6 ??C (97.9 ??F) 03/15/2020 2:20 PM CD T Respiratory Rate 16 03/15/2020 2:20 PM CDT Oxygen Saturation 98% 03/15/2020 2:20 PM CDT Inhaled Oxygen Concentration - - Weight 64.9 kg (143 lb) 03/15/2020 2:20 PM CDT Height - - Body Mass Index - - Plan of Treatment Not on file Care Teams Roller Engraver Relationship Specialty Start Date End Date Jany Slade MD PCP - General Family Practice 03/15/20
--- OUTSIDE RECORDS SUMMARY | 2023-10-20 14:01 | XMS_ITS | Clinical Summary ---
Author Name Unknown Organization [facility] Address [address] [place] [id number] Care Team Providers Care Quality Assurance Intern Name Role Phone Jany Slade MD Primary [...] of Treatment Not on file Care Teams Quality Assurance Intern Relationship Specialty Start Date End Date Jany Slade MD PCP - General Family Practice 03/15/20
--- OUTSIDE RECORDS SUMMARY | 2023-10-20 14:01 | XMS_ITS | Clinical Summary ---
Author Name Unknown Organization [employer] [facility] Address [place], [place] [address] Care Team Providers Care Licensed Practical Nurse Name Role Phone Jany Slade MD Primary Care Provider Unav ailable Allergies No known active allergies Medications Medication Sig Dispensed Refills Start Date End Date Status LORazepam (ATIVAN) 0.5 mg tabIndications:Anxie ty state, unspecified Take 1 tablet by mouth every 6 hours if needed. 10 tablet 0 09/19/2014 Active diphenhydrAMINE (BENADRYL) 50 mg capsule Take 50 mg by mouth every 4 hours if needed. Active fexofenadine (FREDI ALLERGY) 180 mg tablet Take 1 tablet by mouth once daily with a meal. 0 09/12/2019 Active ibuprofen (ADVIL; MOTRIN) 200 mg tablet Take 400 mg by mouth. 10/15/2010 Active EPINEPHrine (EPIPEN) 0.3 mg/0.3 mL injection Inject 0.3 mg intramuscular. 09/04/2019 Active menthol-zinc oxide topical (CALMOSEPTINE;RISAMI NE) ointmentIndications: Anal fistula Apply topically to affected area(s) after bowel movements if needed. 142 g 06/29/2020 Active valACYclovir (VALTREX) 500 mg tabletIndications:HS V infection Take 2 Tablets (1,000 mg) by mouth 2 times daily. 60 Tablet 6 09/28/2020 Active etonogestreL-ethinyl estradioL (NUVARING) vaginal ringIndications:Well woman exam USE 1 RING VAGINALLY EVERY 3 WEEKS FOR 9 WEEKS, THEN REMOVE FOR 1 WEEK. 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 02/10/17 Central Upper Back, Lentiginous compound nevus with moderate atypia, observe Myopia of both eyes with astigmatism 03/13/2016 Adjustment disorder with mixed anxiety and depre ssed mood 07/15/2014 Anxiety state, unspecified 12/05/2009 Overview: Started celexa 12/05/09 Discussed staying on this 6-12 months . Consider taper next visit in July 2010 Resolved Problems Problem Noted Date Diagnosed Date Resolved Date Urticaria, unspecified 09/11 Immunizations Name Administration Dates Next Due DT (Age < 7 years) 08/10/2018 DTP 02/20/1993, 9,1987,1987, 1987 HIB PRP-OMP (PedvaxHIB) 12/24/1988 Hepatitis B, Unspecified 07/23/2009 Human Papilloma Virus Vaccine 02/04/2010 Influenza, IIV3 (Age >=3 years) 06/03/2006 MMR 05/10/1998,11/27/1988 Meningococcal Vaccine 09/08/2005 Oral Polio Vaccine 02/20/1993,11/27/1988, 988,1987 Tdap 03/08/2008 Tuberculin (PPD) 03/08/2008 Family History Medical History Relation Name Comments Cancer Maternal Grandfather Hypertension Maternal Grandfather Cancer Maternal Grandmother Hypertension Maternal Grandmother Allergies Mother Psychiatric illness Mother alzheime rs Heart Disease Paternal Grandfather stent ? [place] Relation Name Status Comments Father Alive Maternal Grandfather Alive Maternal Grandmother Mother Paternal Grandfather Alive Paternal Grandmother Alive Social History Tobacco Use Types Packs/Day Years Used Date Smoking Tobacco: Never Smokeless Tobacco: Never Tobacco Cessation:Counseling Given: Yes Comments:non smoking home Alcohol Use Standard Drinks/Week Comments Yes 2 (1 standard drink = 0.6 oz pur e alcohol) occ PHQ-2 Answer Date Recorded PHQ-2 Score 0 09/05/2019 Social Connections Answer Date Recorded Frequency of Communication with Friends and Fami ly Not on file 07/10/2021 Financial Resource Strain Answer Date R ecorded Difficulty of Paying Living Expenses Not on file 07/10/2021 Difficulty of Paying Living Expenses Not on file 07/10/2021 Sex and Gender Information Value Date Recorded Sex Assigned at Not on file Gender Identity Not on file Sexual Orientation Not on file Obstetrics History Para Term AB IAB SAB Ectopic Multiple Livin g Live Births 0 0 0 0 0 0 0 0 0 0 Last Filed Vital Signs Vital Sign Reading Time Taken Comments Blood Pressure 137/90 10/17/2020 8:38 AM CDT Pulse 80 10/17/2020 8:38 AM CDT Temperature 36.4 ??C (97.5 ??F) 06/29/2020 4:44 PM CS T Respiratory Rate 14 06/29/2020 5:15 PM WHARF WORKER Oxygen Saturation 100% 10/17/2020 8:38 AM CDT Inhaled Oxygen Concentration - - Weight 62.2 kg (137 lb 3.2 oz) 10/17/2020 8:38 A M CDT Height 167.6 cm (5' 6) 10/17/2020 8:38 AM CDT Body Mass Index 22.14 10/17/2020 8:38 AM CDT Plan of Treatment Health Maintenance Due Date Last Done Comments HIV for age 15-65 2002 Hepatitis C screening for age 18-79 2005 Tetanus booster 03/08/2018 03/08/2008 Depression screening for age 12+ 09/05/2020 09/05/2019, 08/10/2018, 08/10/2018, Additional history exists Pap test for age 21-65 08/10/2021 9, 07/11/2014, 02/04/2010, Additional history exists BMI (ht and wt on same day) for age 18+ 10/17/2021 10/17/2020, 05/02/2020, 03/21/2020, Additional history exists COVID-19 vaccine series (2022- season) 2023 Influenza for age 9-49 03/13/2024 06/03/2006 Tdap Completed 03/08/2008 Pneumococcal series for age 6-64 Aged Out No longer eligible based on patient's age to complete this topic Procedures Procedure Name Priority Date/Time Associated Diagnosis Comments MORTGAGE ACCOUNTING CLERK THIN PREP PAP SCREEN IMAGED Routine 08/10/2018 3:00 PM WHARF WORKER Well woman exam from Last 3 Months or Most Recently Relevant to Health Maintenance Results * MORTGAGE ACCOUNTING CLERK THIN PREP PAP SCREEN IMAGED (08/10/2018 3:00 PM WHARF WORKER) Case Report Gynecologic Cytology Report ? Case: [id number] ? Authorizing Provider: ??Jany Slade MD ? Collected: ? 08/10/2018 1500 ? Ordering Location: ? [facility] ?? Received: ?08/10/2018 1504 ? Clinic ? First Screen: ?Gerber, Camille ? Specimen: ?MORTGAGE ACCOUNTING CLERK ThinPrep Vial Screening, Cervical ? 08/20/2018 11:50 AM WHARF WORKER [facility] LABORATORY-C ENTRAL LABORATORY INTERPRETATION/ RESULT NEGATIVE FOR INTRAEPITHELIAL LESION OR MALIGNANCY (NIL) (none) 08/20/2018 11:50 AM [facility] ENTRNY LABORATORY IMEN ADEQUACY Satisfactory for evaluation No endocervical component seen 08/20/2018 11:50 AM [facility] ENTRAL LABORATORY HPV REQUEST HPV if ASCUS 08/20/2018 11:50 AM [facility] ENTRAL LABORATORY Date of LMP 07/20/2018 08/20/2018 11:50 AM [facility] ENTRAL LABORATORY Last Pap Date 07/11/14 08/20/2018 11:50 AM [facility] ENTRAL LABORATORY Last Pap Result NIL 9 11:50 AM [facility] ENTRAL LABORATORY Abnormal Pap or [place] Bx in last 5 years No 08/20/2018 11:50 AM [facility] [employer] [facility] ENTRAL LABORATORY Menstrual Status Regular Periods 08/20/2018 11:50 AM [facility] ENTRNY LABORATORY [place] Bx Done Today No 08/20/2018 11:50 AM [facility] ENTRAL LABORATORY Additional Information None given 08/20/2018 11:50 AM [facility] ENTRNY LABORATORY Automated Review Successful 08/20/2018 11:50 AM [facility] ENTRAL LABORATORY Comment:Specimen processed s uccessfully by automated solution professional device, ThinPrep Imaging System, [employer] Note The pap test is a screening technique, not a diagnostic procedure. ??It is used primarily to screen for squamous cancers and precursor lesions. ??Published studies have shown that it is subject to both false negative and false positive results. ??The pap test should not be used as the sole means to diagnose or exclude pre-malignant and malignant lesions. Cytology is screened and interpreted at [facility], Central Laboratory - [address], [place] [address] and [facility] - [address]; [place] [address] and [facility] - [address]; [place] [address] and [facility] [address]; [place] [address] 08/20/2018 11:50 AM WHARF WORKER [facility] LABORATORY-C ENTRAL LABORATORY Other (Cervical) Non-Blood / Unknown 08/10/2018 3:00 PM WHARF WORKER 08/10/2018 3:04 PM WHARF WORKER Jany Slade MD PATHOLOGY/CYTOLOGY [facility] LABORATORY-CENTRAL LABORATORY [address] [place] [address], from Last 3 Months or Most Recently Relevant to Health Maintenance Advance Directives * Full Code (Latest Code Status on File) Date Activated Date Inactivated Comments 06/29/2020 1:51 PM 06/29/2020 9:26 PM Question Answer Comments Code Status Discussion: Not Discussed Care Teams Licensed Practical Nurse Relationship Specialty Start Date End Date Jany Slade MD PCP - General Family Practice 07/07/14
== END 2023-10-20 14:00 | disposition home or self-care (01) ==
LOC: US 13:59
PROVIDERS: Visit Provider Advanced Practice Midwife
DX: O40.3XX0 Polyhydramnios, third trimester, not applicable or unspecified (principal); Z3A.38 38 weeks gestation of pregnancy
CPT/HCPCS: 76816; 76819

== ENCOUNTER 2023-10-27 07:08 | Outpatient (CLI) | payer BC, SELFPAY ==
--- OUTSIDE RECORDS SUMMARY | 2023-10-27 07:10 | XMS_ITS | Clinical Summary ---
Author Name Unknown Organization [facility] Address [address] [place] [address] Care Team Providers Care Food Taster Name Role Phone Jany Slade MD Primary Care Provider Unavailabl e Allergies No known active allergies Medications Medication Sig Dispensed Refills Start Date End Date Status fexofenadine (FREDI) 180 MG tablet Take 180 mg by mouth 09/12/2019 Active Active Problems No known active [...] of Treatment Not on file Care Teams Food Taster Relationship Specialty Start Date End Date Jany Slade MD PCP - General Family Practice 03/15/20
--- OUTSIDE RECORDS SUMMARY | 2023-10-27 07:10 | XMS_ITS | Clinical Summary ---
Author Name Unknown Organization [employer] [facility] Address [place], [place] [address] Care Team Providers Care Bank Compliance Officer Name Role Phone Jany Slade MD Primary [...] rs Heart Disease Paternal Grandfather stent ? [place] Relation Name Status Comments Father Alive Maternal [...] T Respiratory Rate 14 06/29/2020 5:15 PM FLEET MANAGER/DISPATCH Oxygen Saturation 100% 10/17/2020 8:38 AM CDT [...] Procedure Name Priority Date/Time Associated Diagnosis Comments DIETETIC INTERN THIN PREP PAP SCREEN IMAGED Routine 08/10/2018 3:00 PM FLEET MANAGER/DISPATCH Well woman exam from Last 3 Months or Most Recently Relevant to Health Maintenance Results * DIETETIC INTERN THIN PREP PAP SCREEN IMAGED (08/10/2018 3:00 PM FLEET MANAGER/DISPATCH) Case Report Gynecologic Cytology Report ? Case: [id number] ? Authorizing Provider: ??Jany Slade MD ? Collected: ? 08/10/2018 1500 ? Ordering Location: ? [place] [facility] ?? Received: ?08/10/2018 1504 ? Clinic ? First Screen: ?Gerber, Camille ? Specimen: ?DIETETIC INTERN ThinPrep Vial Screening, Cervical ? 08/20/2018 11:50 AM FLEET MANAGER/DISPATCH [facility] LABORATORY-C ENTRAL LABORATORY INTERPRETATION/ RESULT NEGATIVE FOR INTRAEPITHELIAL LESION OR MALIGNANCY (NIL) (none) 08/20/2018 11:50 AM [facility] ENTRNE LABORATORY IMEN ADEQUACY Satisfactory for evaluation No endocervical component seen 08/20/2018 11:50 AM [facility] ENTRAL LABORATORY HPV REQUEST HPV if ASCUS 08/20/2018 11:50 AM [facility] ENTRAL LABORATORY Date of LMP 07/20/2018 08/20/2018 11:50 AM [facility] ENTRAL LABORATORY Last Pap Date 07/11/14 08/20/2018 11:50 AM [facility] ENTRAL LABORATORY Last Pap Result NIL 9 11:50 AM [facility] ENTRAL LABORATORY Abnormal Pap or [place] Bx in last 5 years No 08/20/2018 11:[address] [facility] [employer] [facility] ENTRAL LABORATORY Menstrual Status Regular Periods 08/20/2018 11:50 AM [facility] ENTRNE LABORATORY [place] Bx Done Today No 08/20/2018 11:50 AM [facility] ENTRAL LABORATORY Additional Information None given 08/20/2018 11:50 AM [facility] ENTRNE LABORATORY Automated Review Successful 08/20/2018 11:50 AM [facility] ENTRAL LABORATORY Comment:Specimen processed s uccessfully by automated internet security specialist device, ThinPrep Imaging System, [employer] Note The pap test is a [...] lesions. Cytology is screened and interpreted at [facility], Central Laboratory - [address], [place] [address] [address] [facility] - [address]; [place] [address] and [facility] - [address]; [place] [address] and [facility] [address]; [place] [address] 08/20/2018 11:50 AM FLEET MANAGER/DISPATCH [facility] LABORATORY-C ENTRAL LABORATORY Other (Cervical) Non-Blood / Unknown 08/10/2018 3:00 PM FLEET MANAGER/DISPATCH 08/10/2018 3:04 PM FLEET MANAGER/DISPATCH Jany Slade MD PATHOLOGY/CYTOLOGY [facility] LABORATORY-CENTRAL LABORATORY [address] [place] [address], from Last 3 Months or Most Recently Relevant to Health Maintenance Advance Directives * Full Code (Latest Code Status on File) Date Activated Date Inactivated Comments 06/29/2020 1:51 PM 06/29/2020 9:26 PM Question Answer Comments Code Status Discussion: Not Discussed Care Teams Bank Compliance Officer Relationship Specialty Start Date End Date Jany Slade MD PCP - General Family Practice 07/07/14
--- OUTSIDE RECORDS SUMMARY | 2023-10-27 07:10 | XMS_ITS | Referral Summary ---
Author Name Unknown Organization [facility] Address [address] [place] [address] Care Team Providers Care Cnc Mill Set Up Operator Name Role Phone Jany Slade MD Primary [...] of Treatment Not on file Care Teams Cnc Mill Set Up Operator Relationship Specialty Start Date End Date Jany Slade MD PCP - General Family Practice 03/15/20
--- NOTE | 2023-10-27 07:15 | US_ITS ---
Patient: IAN SOSA Facility:?[facility] Patient ID:?[id number] Site Patient ID:?[id number]. Site :?1985 Study:?US-OB Pelvis BPP-10/27/2023 7:40:27 AM Ordering Physician:?YUDITH MELTON Final Report: INDICATION: Follow-up fluid COMPARISON: 10/20/2023 TECHNIQUE: Real time rivero scale imaging of the fetus was performed. Without non-stress testing. FINDINGS: Sonographic imaging demonstrates a single living intrauterine gestation. Fetus demonstrates a regular cardiac rate of 130 beats per minute. Fetus has a vertex position. The amniotic fluid volume appears normal and there is a single deepest pocket measurement of 7.3 cm. MARY 19.1 cm. The fetus was active and demonstrated normal breathing movements. There was normal flexion and extension of the trunk and extremities. IMPRESSION: Normal biophysical profile score of 8 out of 8. Dictated by Jamal Plummer MD @ 10/27/2023 10:00:06 AM Signed by:?Jamal Plummer MD @10/27/2023 10:00:06 AM (Electronic Signature)
== END 2023-10-27 07:09 | disposition home or self-care (01) ==
LOC: US 07:09
PROVIDERS: Visit Provider Physician Assistant
DX: O40.3XX0 Polyhydramnios, third trimester, not applicable or unspecified (principal)
CPT/HCPCS: 76819; 82728

== ENCOUNTER 2023-11-02 08:27 | Outpatient (CLI) | payer BC, SELFPAY ==
--- OUTSIDE RECORDS SUMMARY | 2023-11-02 08:29 | XMS_ITS | Referral Summary ---
Author Name Unknown Organization [facility] Address [address] [place] [address] Care Team Providers Care Freelance Web Designer Name Role Phone Jany Slade MD Primary [...] of Treatment Not on file Care Teams Freelance Web Designer Relationship Specialty Start Date End Date Jany Slade MD PCP - General Family Practice 03/15/20
--- OUTSIDE RECORDS SUMMARY | 2023-11-02 08:29 | XMS_ITS | Clinical Summary ---
Author Name Unknown Organization [facility] Address [address] [place] [address] Care Team Providers Care Custom Studio Coordinator Name Role Phone Jany Slade MD Primary [...] of Treatment Not on file Care Teams Custom Studio Coordinator Relationship Specialty Start Date End Date Jany Slade MD PCP - General Family Practice 03/15/20
--- OUTSIDE RECORDS SUMMARY | 2023-11-02 08:29 | XMS_ITS | Clinical Summary ---
Author Name Unknown Organization [employer] [facility] Address [place], [place] [address] Care Team Providers Care Copyholder Name Role Phone Jany Slade MD Primary [...] rs Heart Disease Paternal Grandfather stent ? [place] Relation Name Status Comments Father Alive Maternal [...] T Respiratory Rate 14 06/29/2020 5:15 PM MATE CHIEF Oxygen Saturation 100% 10/17/2020 8:38 AM CDT [...] Procedure Name Priority Date/Time Associated Diagnosis Comments GARMENT SEWING MACHINE OPERATOR THIN PREP PAP SCREEN IMAGED Routine 08/10/2018 3:00 PM MATE CHIEF Well woman exam from Last 3 Months or Most Recently Relevant to Health Maintenance Results * GARMENT SEWING MACHINE OPERATOR THIN PREP PAP SCREEN IMAGED (08/10/2018 3:00 PM MATE CHIEF) Case Report Gynecologic Cytology Report ? Case: [id number] ? Authorizing Provider: ??Jany Slade MD ? Collected: ? 08/10/2018 1500 ? Ordering Location: ? [facility] ?? Received: ?08/10/2018 1504 ? Clinic ? First Screen: ?Gerber, Camille ? Specimen: ?GARMENT SEWING MACHINE OPERATOR ThinPrep Vial Screening, Cervical ? 08/20/2018 11:50 AM MATE CHIEF [facility] LABORATORY-C ENTRAL LABORATORY INTERPRETATION/ RESULT NEGATIVE FOR INTRAEPITHELIAL LESION OR MALIGNANCY (NIL) (none) 08/20/2018 11:50 AM [facility] ENTRMI LABORATORY IMEN ADEQUACY Satisfactory for evaluation No endocervical component seen 08/20/2018 11:50 AM [facility] ENTRAL LABORATORY HPV REQUEST HPV if ASCUS 08/20/2018 11:50 AM [facility] ENTRAL LABORATORY Date of LMP 07/20/2018 08/20/2018 11:50 AM [facility] ENTRAL LABORATORY Last Pap Date 07/11/14 08/20/2018 11:50 AM [facility] ENTRAL LABORATORY Last Pap Result NIL 9 11:50 AM [facility] ENTRAL LABORATORY Abnormal Pap or [place] Bx in last 5 years No 08/20/2018 11:50 AM [facility] ENTRAL LABORATORY Menstrual Status Regular Periods 08/20/2018 11:50 AM [facility] ENTRMI LABORATORY [place] Bx Done Today No 08/20/2018 11:50 AM [facility] ENTRAL LABORATORY Additional Information None given 08/20/2018 11:50 AM [facility] ENTRMI LABORATORY Automated Review Successful 08/20/2018 11:50 AM [facility] ENTRAL LABORATORY Comment:Specimen processed s uccessfully by automated water analyst device, ThinPrep Imaging System, [employer] Note The pap test is a [...] lesions. Cytology is screened and interpreted at [facility], Central Laboratory - [address], [place] [address] and [facility] - [address]; [place] [address] and [facility] - [address]; [place] [address] and [facility] [address]; [place] [address] 08/20/2018 11:50 AM MATE CHIEF [facility] LABORATORY-C ENTRAL LABORATORY Other (Cervical) Non-Blood / Unknown 08/10/2018 3:00 PM MATE CHIEF 08/10/2018 3:04 PM MATE CHIEF Jany Slade MD PATHOLOGY/CYTOLOGY [facility] LABORATORY-CENTRAL LABORATORY [address] [place] [address], from Last 3 Months or Most Recently Relevant to Health Maintenance Advance Directives * Full Code (Latest Code Status on File) Date Activated Date Inactivated Comments 06/29/2020 1:51 PM 06/29/2020 9:26 PM Question Answer Comments Code Status Discussion: Not Discussed Care Teams Copyholder Relationship Specialty Start Date End Date Jany Slade MD PCP - General Family Practice 07/07/14
--- NOTE | 2023-11-02 08:45 | US_ITS ---
Patient: IAN SOSA Facility:?[facility] Patient ID:?[id number] Site Patient ID:?[id number]. Site :?1985 Study:?US-OB Pelvis OB BPP-11/02/2023 9:14:21 AM Ordering Physician:?LUIS ALFREDO MARIE CNP Final Report: INDICATION: Marginal cord insertion TECHNIQUE: Limited transabdominal two-dimensional rivero-scale ultrasound examination. COMPARISON: 10/27/2023 FINDINGS: There is a living fetus in cephalic lie with gestational age of 40 weeks and EDC of 11/02/2023. The biophysical profile score is 8/8. The heart rate is measured at 147 beats per minute and the rhythm appears regular. There is mild polyhydramnios with a single deepest pocket of 8.4 cm and MARY of 21 cm. The placenta is posterior and superior to the cervical os. There is no evidence of previa. IMPRESSION: 1. Living fetus in cephalic lie with gestational age of 40 weeks and EDC of 11/02/2023. 2. Biophysical profile score is 8/8. 3. Mild polyhydramnios with single deepest pocket of 8.4 cm and MARY of 21 cm. Dictated by Easotn Ta MD @ 11/02/2023 1:19:22 PM Signed by:?Easton Ta MD @11/02/2023 1:19:22 PM (Electronic Signature)
== END 2023-11-02 08:28 | disposition home or self-care (01) ==
LOC: US 08:28
PROVIDERS: Visit Provider Registered Nurse
DX: O43.193 Other malformation of placenta, third trimester (principal); O40.3XX0 Polyhydramnios, third trimester, not applicable or unspecified; Z3A.40 40 weeks gestation of pregnancy
CPT/HCPCS: 76819

== ENCOUNTER 2023-11-09 07:18 | Inpatient (IN) | payer BC, SELFPAY ==
[2023-11-09] VITALS (18 sets, daily range): BP systolic 100–119; BP diastolic 55–79; PULSE 72–119; RESP 16; TEMP 36.5–36.7; O2SAT 96–98; BMI 26.9
--- OUTSIDE RECORDS SUMMARY | 2023-11-09 07:21 | XMS_ITS | Clinical Summary ---
Author Name Unknown Organization [facility] Address [address] [place] [address] Care Team Providers Care Blacksmith Apprentice Name Role Phone Jany Slade MD Primary [...] of Treatment Not on file Care Teams Blacksmith Apprentice Relationship Specialty Start Date End Date Jany Slade MD PCP - General Family Practice 03/15/20
--- OUTSIDE RECORDS SUMMARY | 2023-11-09 07:21 | XMS_ITS | Referral Summary ---
Author Name Unknown Organization [facility] Address [address] [place] [address] Care Team Providers Care School Cleaner Name Role Phone Jany Slade MD Primary [...] of Treatment Not on file Care Teams School Cleaner Relationship Specialty Start Date End Date Jany Slade MD PCP - General Family Practice 03/15/20
--- OUTSIDE RECORDS SUMMARY | 2023-11-09 07:21 | XMS_ITS | Clinical Summary ---
Author Name Unknown Organization [employer] [facility] Address [place], [place] [address] Care Team Providers Care Traveling Repair Accountant Name Role Phone Jany Slade MD Primary [...] rs Heart Disease Paternal Grandfather stent ? [place] Relation Name Status Comments Father Alive Maternal [...] T Respiratory Rate 14 06/29/2020 5:15 PM CARTOGRAPHIC ENGINEER Oxygen Saturation 100% 10/17/2020 8:38 AM CDT [...] Procedure Name Priority Date/Time Associated Diagnosis Comments CUSTOM TAILOR APPRENTICE THIN PREP PAP SCREEN IMAGED Routine 08/10/2018 3:00 PM CARTOGRAPHIC ENGINEER Well woman exam from Last 3 Months or Most Recently Relevant to Health Maintenance Results * CUSTOM TAILOR APPRENTICE THIN PREP PAP SCREEN IMAGED (08/10/2018 3:00 PM CARTOGRAPHIC ENGINEER) Case Report Gynecologic Cytology Report ? Case: [id number] ? Authorizing Provider: ??Jany Slade MD ? Collected: ? 08/10/2018 1500 ? Ordering Location: ? [facility] ?? Received: ?08/10/2018 1504 ? Clinic ? First Screen: ?Gerber, Camille ? Specimen: ?CUSTOM TAILOR APPRENTICE ThinPrep Vial Screening, Cervical ? 08/20/2018 11:50 AM CARTOGRAPHIC ENGINEER [facility] [facility] INTERPRETATION/ RESULT NEGATIVE FOR INTRAEPITHELIAL LESION OR MALIGNANCY (NIL) (none) 08/20/2018 11:50 AM [facility] IMEN ADEQUACY Satisfactory for evaluation No endocervical component seen 08/20/2018 11:50 AM [facility] HPV REQUEST HPV if ASCUS 08/20/2018 11:50 AM [facility] Date of LMP 07/20/2018 08/20/2018 11:50 AM [facility] Last Pap Date 07/11/14 08/20/2018 11:50 AM [facility] Last Pap Result NIL 9 11:50 AM [facility] Abnormal Pap or Robinson Bx in last 5 years No 08/20/2018 11:50 AM [facility] [employer] [facility] Menstrual Status Regular Periods 08/20/2018 11:50 AM [facility] Robinson Bx Done Today No 08/20/2018 11:50 AM [facility] Additional Information None given 08/20/2018 11:50 AM [facility] Automated Review Successful 08/20/2018 11:50 AM [facility] Comment:Specimen processed s uccessfully by automated supervisor shipping room device, ThinPrep Imaging System, [employer] Note The pap test is a [...] lesions. Cytology is screened and interpreted at [facility] - [address], [place] [address] and [facility] - [address]; [place] [address] and [facility] - [address]; [place] [address] and [facility] [address]; [place] [address] 08/20/2018 11:50 AM CARTOGRAPHIC ENGINEER [facility] EN[facility]AL LAB[facility] Other (Cervical) Non-Blood / Unknown 08/10/2018 3:00 PM CARTOGRAPHIC ENGINEER 08/10/2018 3:04 PM CARTOGRAPHIC ENGINEER Jany Slade MD PATHOLOGY/CYTOLOGY [facility] [address] [place] [address], from Last 3 Months or Most Recently Relevant to Health Maintenance Advance Directives * Full Code (Latest Code Status on File) Date Activated Date Inactivated Comments 06/29/2020 1:51 PM 06/29/2020 9:26 PM Question Answer Comments Code Status Discussion: Not Discussed Care Teams Traveling Repair Accountant Relationship Specialty Start Date End Date Jany Slade MD PCP - General Family Practice 07/07/14
--- NOTE | 2023-11-09 08:14 | P.LDBA_ITS ---
Subjective History of Present Illness Time Seen by Provider: 08:00 Date Seen: 11/09/23 Narrative: Patient is being admitted to Labor and Delivery for IOL. She is a 38 year old at 41.0 weeks gestation. Her full history and physical was dictated by Katalina Webb on 10/13/23. Please see this for details. She denies feeling frequent contractions since her last visit and has only had occasional contractions or cramping. Her cervical exam is mostly unchanged from her last office visit except the cervix location is now anterior. She did get a cold over the weekend but she is feeling better now. We discussed IOL options including Pitocin, Cytotec, and AROM and risks/benefits of each. She would like to proceed with Cytotec vaginally as this worked well in her last induction. She is planning a water and consent was previously signed. Specific Issues/Plans H&P 10/13/2023, Tracey : Tomás # Polyhydramnios at 32wks-Resolved (2 normal MARY) SDP 8.4, MARY 27.3 BPP 8/8 Weekly BPP-continue BPPs for marginal cord, already ordered 09/15: SDP 9.3, MARY 26.7, BPP 8/8 10/01 SDP 8.1, MARY 25, BPP 8/8 10/07 SDP 8.2, MARY 26.1, BPP 8/8 10/12 SDP 8.7, MARY 19, BPP 8/8 10/19 SDP 5.9, MARY 19.2 BPP 8/8 10/26 SDP 7.3, MARY 19.1 BPP 8/8 11/01 SDP 8.4, MARY 21, BPP 8/8 Recommend IOL at 39 0/7-39 6/7 weeks-no longer recommended, would like to wait for spontaneous labor if possible. # Anemia. Hgb 9.4 at 28wks. Ferritin:5.4 PO iron supplementation not taking at 30 weeks iron rich food list and alternative supplement no improvement at 34 weeks- iron infusions ordered Iron infusion 10/06/2023. Recheck hemoglobin next visit-wanted to wait at 38wk visit since IOL no longer needed, consider next visit or at time of labor. 10/27/23: hgb 10.8, ferritin 87 # Hx herpes needs Rx at 36 weeks-sent # MINA and Grief on citalopram brother committed suicide during this , around 30 wks therapy referral sent # Hx severe preeclampsia 81mg ASA at 12 weeks: taking Baseline labs drawn at NOB: p/c ratio 0.4 24hr urine: all normal # AMA Genetic screening: declines # Hx vacuum delivery for FHTs # Hx borderline oligo # Marginal Cord insertion Growth US at 28wks: 51% Growth US at 32wks: 69% consider weekly BPP or NST at 36 weeks (doing BPPs for poly) Flu: Covid: Tdap: Given, 09/10/23 OB - Problem Based A/P Additional Plan (1) Encounter for induction of labor: Status: Acute (2) Marginal insertion of umbilical cord: Status: Acute (3) Supervision of elderly multigravida (>=35 years old at time of delivery): Status: Acute (4) Generalized anxiety disorder: Status: Acute Plan ASSESSMENT:? at 41.0 weeks gestation? GBS negative? complicated by AMA, marginal cord insertion, anemia, and resolved polyhydramnios? Postterm IOL? ?? PLAN:? 1. Reviewed risks and benefits of IOL with pitocin vs cytotec vs AROM. Pt prefers cytotec. Pitocin or AROM to follow if needed.? 2. Desires water . Consent signed. Hep C negative.? 3. Candidate for analgesia of choice. Planning unmedicated .? 4. Anticipate ? 5. IV and monitoring per unit policy Delivery/Labor/Induction Plan Plan: induction Induction method: per misoprostol protocol OB Result Labs Blood Type: A (+) positive Rubella: immune RPR/VDLR: nonreactive GBS Status: negative OB Exam Physical Exam Vital signs: Temp Pulse Resp BP Pulse Ox 97.7 F 100 16 117/79 98 11/09/23 08:00 11/09/23 07:48 11/09/23 08:00 11/09/23 07:48 11/09/23 07:56 Narrative: Psychiatric:? Alert and oriented x3? HEENT:? Normocephalic, atraumatic? Neck:? Supple without adenopathy or thyromegaly? Lungs:? Clear to auscultation bilaterally? Heart:? Regular rate and rhythm, no murmur, rub or gallop? Abdomen:? Soft, nontender, and gravid? Extremities:? No edema or erythema? Detailed Labor and Delivery Exam Patient Gravid: Yes Dilation (cm): 1 (1.5cm) Effacement (%): 60 Cervix position: anterior Consistency: medium Contraction Frequency: none per TOCO or patient report Fetus (Single) Station: -3 Amniotic Membrane Status: intact Heart Rate Baseline: 140 Monitor Accelerations: Present Monitor Decelerations: None Detention Variability: Moderate (6-25)
[2023-11-09] MEDS: miSOPROStoL 25 MCG/0.25 TABLET VAGINAL ×2 (08:29→11:41)
--- NOTE | 2023-11-09 15:42 | PM.OBPNL ---
Subjective Date Seen: 11/09/23 Narrative: Kimberly has received 2 doses of Cytotec. She was due for a third dose at 1440 but was camelia too frequently. She continues to contract every 1.5-3 minutes. She is feeling some of the contractions but they are not very painful at this time. She denies leaking fluid. We discussed options for continuing induction including expectant management for the next couple of hours before reevaluating, Pitocin titration, and AROM. Her cervical exam is mostly unchanged. Baby feels somewhat ballottable so AROM was not considered at this time. We would like to avoid Pitocin at this time. Was choose expectant management at this time and will plan to pump and use position changes. Will reevaluate in a few hours or sooner if needed. Objective Vital Signs: Last Vital Signs Temp 98.0 F 11/09/23 15:35 Pulse 80 11/09/23 15:12 Resp 16 11/09/23 11:33 BP 119/72 11/09/23 15:12 Pulse Ox 98 11/09/23 07:56 Pelvic Exam Dilation (cm): 1.5 Effacement (%): 80 Station: ballottable Contractions Monitor mode: External Contraction Frequency: 1.5-3 Contraction pattern: Regular Contraction intensity: Mild Assessment Assessment: induction ongoing Heart Rate Baseline: 145 Nursing Home Variability: Moderate (6-25) Monitor Accelerations: Present Monitor Decelerations: None Plan Plan: ASSESSMENT:? at 41.0 weeks gestation? GBS negative? complicated by AMA, marginal cord insertion, anemia, and resolved polyhydramnios? Postterm IOL? ?? PLAN:? 1. Unable to give 3rd dose of Cytotec at this time. Reconsider if contractions space out. Expectant management at this time. 2. Desires water . Consent signed. Hep C negative.? 3. Candidate for analgesia of choice. Planning unmedicated .? 4. Anticipate ? 5. IV and monitoring per unit policy
--- NOTE | 2023-11-09 21:18 | PM.OBPNL ---
Subjective Date Seen: 11/09/23 Narrative: Kimberly has continued to contract frequently on her own, but is still only feeling them as cramping. She did take a nap and was easily able to sleep through the contractions. Prior to napping she had pumped and done the labor warm up circuit and other position changes. Baby has continued to have a category 1 tracing. Her contractions have now spaced out to every 2-4 minutes. On cervical exam she is unchanged but baby is not longer ballottable. We reviewed options for continuing induction including Pitocin titration, Cytotec, and AROM. Reviewed risks and benefits of each option and questions answered. She would like to proceed with Pitocin titration. 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 at 41.0 weeks gestation? GBS negative? complicated by AMA, marginal cord insertion, anemia, and resolved polyhydramnios? Postterm IOL? ?? PLAN:? 1. Reviewed option for continued IOL including AROM, Cytotec, and Pitocin. Would like to proceed with Pitocin titration per unit policy. 2. Desires water . Consent signed. Hep C negative.? 3. Candidate for analgesia of choice. Planning unmedicated .? 4. Anticipate .? 5. Place IV for Pitocin administration. 6. Continuous monitoring per unit policy for Pitocin administration.
[2023-11-09] MEDS: LACTATED RINGERS 1000 ML 1,000 ML 125 ML IV (21:30)
[2023-11-09] MEDS: OXYTOCIN 30 unit/500 ML in NS 30 UNIT/500 ML BAG IVPB (21:31)
[2023-11-10] VITALS (29 sets, daily range): BP systolic 102–138; BP diastolic 57–92; PULSE 63–132; RESP 16–22; TEMP 36.3–36.7; O2SAT 95–97
[2023-11-10] MEDS: LACTATED RINGERS 1000 ML 1,000 ML 120 ML IV (03:32)
[2023-11-10 06:37] LABS: Basophils Absolute Auto 0.01 K/uL (0.00-0.30); Basophils Percent Auto 0.1 % (0.0-3.0); Eosinophils Absolute Auto 0.08 K/uL (0.00-0.50); Eosinophils Percent Auto 0.9 % (0.0-7.0); Hematocrit 40.2 % (33.0-51.0); Hemoglobin* 12.8 gm/dL (12.0-16.0); Immature Granulocytes Abs Auto 0.05 K/uL (0.00-0.30); Immature Granulocytes Pct Auto 0.6 %; Lymphocytes Absolute Auto 1.85 K/uL (0.90-2.90); Lymphocytes Percent Auto 21.4 % (20-44); Mean Corpuscular HGB Conc 32 gm/dL (32-36); Mean Corpuscular Hemoglobin 28 pg (26-34); Mean Corpuscular Volume 88 fL (80-100); Monocytes Percent Auto 5.9 % (0.0-11.0); Neutrophils Absolute Auto 6.15 K/uL (1.7-7.0); Neutrophils Percent Auto 71.1 % (42.0-72.0); Platelet Count* 204 K/uL (140-440); RDW Coefficient of Variation % 18.4 % (11.5-15.5); Red Blood Count 4.55 m/uL (4.00-5.20); White Blood Count* 8.65 K/uL (4.50-11.00)
[2023-11-10 06:38] LABS: Slide Review Reflex No
[2023-11-10] MEDS: IBUPROFEN 600 MG TABLET PO ×2 (13:45→19:47)
--- NOTE | 2023-11-10 15:41 | W.PM.VAGDE_ITS ---
OB Procedure Vag Delivery Mother Details Mother Details: The patient is a 38 year-old, 2, now Para 2, admitted on 11/09/23 at 41 0/7 weeks. : 2 Para: 2 Weeks Gestation: 41.1 Admission Date: 11/10/23 Additional Details Amniotic Membrane Status: AROM Amniotic Membrane Rupture Date: 11/10/23 Amniotic Membrane Rupture Time: 07:35 Amniotic Membrane Fluid Description: Meconium Stained (Initially clear, mec stained with terminal mec at delivery) Analgesia/Anesthesia Type: None Waterbirth: No Pitcoin: Yes (AMTSL) Intrapartal Events: Labor Induction and Prolonged 2nd Stage >2.5 Hrs Induction Method: per misoprostol protocol, per pitocin protocol and AROM Labor Onset: 09:16 Complete: 10:56 Pushin:56 Heart: heart tones during second stage were intermittently ascultated and remained reassuring. Then continuous monitored for the last 30 minutes with reassuring heart tones, moderate variability and accelerations present throughout. Delivery Details Delivery Date: 11/10/23 Delivery Time: 13:29 Route of delivery: Infant Gender: Female Infant Viability: Alive; Heart Rate Present Position at Delivery: OA (DELMAR) Delivery Details: Patient was admitted for induction of labor for post-dates. Her induction was started with Cytotec x2 doses then Pitocin. AROM'd at 0735 with clear fluid. Patient began to have urge to push at 0930 and intermittently pushed with urge. After 1 hour with minimal change, cervical exam was done with anterior lip present. She attempted hands and knees with minimal change then transitioned out of the tub to try side lying release on the bed. Anterior cervix remained and we attempted to reduce which was successful. She then returned to the tub and pushed more actively. On recheck anterior lip was not present but on subsequent exam it was palpated. Patient was complete at 1056 and pushing at 1056. After 2.5 hours of pushing with notable progress but maternal fatigue present, she was recommended to exit the tub and try to push with guidance and perineal massage. She made great progress but fatigue was evident. Vacuum was discussed and Dr. Rangel was notified. Patient then made [facility] before MD arrival, she was then called off. of a viable female at 1329 in semi- fowlers on the bed. Shoulder dystocia was identified and Tara and suprapubic pressure were initiated with 50 seconds of total time from head to body. No nuchal. Body delivered slowly with gentle traction without incident. Vertex delivered DELMAR. passed to mothers abdomen without cry. Cord was clamped and cut at immediately and infant was then taken to warmer by RN. APGARS were 5 at one minute and 8 at five minutes respectively. Mouth was bulb suctioned. Intact placenta with a 3 vessel cord delivered spontaneously at 2138. Fundus firm. Intact perineum identified. QBL 300 cc. IV Pitocin for AMTSL. Mother and baby stable; mother plans to breastfeed. weight 8lb 15oz. 1 Minute Interval Total Score: 5 5 Minute Interval Total Score: 8 Additional Details Shoulder Dystocia: Yes (50 seconds from head to body) Placenta Delivery Time: 13:38 Placental Delivery Description: Spontaneous Procedure Done: Global Blood Loss: 300 Laceration: None Blood Loss Measurement Type: QBL Bakri Used: No Sponge/Need Count Correct: Yes Cord Vessel Description: 3 Vessels Event Summary Status: Mother and infant were stable after delivery. Disposition: floor
[2023-11-11] MEDS: IBUPROFEN 600 MG TABLET PO ×3 (04:48→19:30)
[2023-11-11 04:53] VITALS: BP 117/85; PULSE 88; RESP 16; TEMP 36.4; O2SAT 98
[2023-11-11 06:17] LABS: Hemoglobin* 11.9 gm/dL (12.0-16.0)
--- NOTE | 2023-11-11 08:35 | P.OBPN_ITS ---
OB - PN:Subj Subjective Date Seen: 11/11/23 Patient comments OB post-: no complaints and pain well controlled [place] infant status: feeding status: exclusively Narrative: Kimberly is a 38 y.o. who was admitted to L & D for induction of labor.? She had an uncomplicated NVD.? ?? The patient feels well.? The pain is well controlled with current medications.? She has no new complaints.? She is breast feeding and reports things are going well.? the patient has done well.? Vitals have been stable.? She has remained afebrile.? Has a good appetite, is tolerating a general diet.? She is voiding without difficulty.? She is passing gas and has not had a bowel movement.? She is ambulating and denies any dizziness.? Has Small amount of rubra lochia.? OB - PN: Obj Exam Physical Exam: Vital signs: Temp Pulse Resp BP Pulse Ox O2 Del Method 97.5 F L 88 16 117/85 98 Room Air 11/11/23 04:53 11/11/23 04:53 11/11/23 04:53 11/11/23 04:53 11/11/23 04:53 11/11/23 04:53 Narrative: GENERAL APPEARANCE:? normal affect, alert, no distress? MOOD:? appropriate? HEENT: normocephalic, neck supple, full ROM? CHEST:? Symmetrical chest wall movement.? Normal respiratory effort.? Clear to auscultation ? HEART:? regular rate and rhythm? ABDOMEN:? soft, non-tender. Uterine fundus is firm, at Umbilicus, Midline and is appropriate for the stage of recovery.? Bowel sounds present.? PERINEUM:? mild edema of the perineum EXTREMITIES:? normal and no edema? OB - PN: Obj Data Labs Labs: Laboratory Results - last 24 hr 11/11/23 06:05 Hgb 11.9 L OB - PN: A/P Delivery Assessment and Plan (1) Marginal insertion of umbilical cord: Status: Acute (2) Supervision of elderly multigravida (>=35 years old at time of delivery): Status: Acute (3) Generalized anxiety disorder: Status: Acute (4) care and examination immediately after delivery: Status: Acute (5) Lactating mother: Status: Acute Plan day: 1 Plan: routine care Comments: G 2 P 2 status post uncomplicated NVD??? 1.? Continue route PP cares? 2.? .? May see if desired? 3.? Anticipate discharge home tomorrow?
[2023-11-11 09:00] VITALS: BP 112/73; RESP 87; TEMP 36.7; O2SAT 96
[2023-11-11] MEDS: ACETAMINOPHEN 500 MG TABLET 1000 MG PO ×2 (09:38→16:54)
[2023-11-11] MEDS: DOCUSATE SODIUM 100 MG CAPSULE PO (09:39)
[2023-11-11 13:31] VITALS: BP 106/72; PULSE 87; RESP 16; O2SAT 96
[2023-11-11 20:59] VITALS: BP 110/72; PULSE 76; RESP 16; TEMP 36.5; O2SAT 96
[2023-11-12 00:17] LABS: Rapid Plasma Reagin (RPR) Non Reactive (Non Reactive)
[2023-11-12] MEDS: IBUPROFEN 600 MG TABLET PO ×2 (02:46→08:52)
[2023-11-12 03:25] VITALS: BP 122/83; PULSE 64; RESP 16; TEMP 36.4; O2SAT 95
[2023-11-12 08:10] VITALS: BP 117/78; PULSE 73; RESP 16; TEMP 36.6; O2SAT 98
[2023-11-12] MEDS: DOCUSATE SODIUM 100 MG CAPSULE PO (08:52)
--- NOTE | 2023-11-12 09:01 | P.DS_ITS ---
DS: Providers Provider Date Seen: 11/12/23 Date of admission: 11/09/23 07:18 Primary care physician: Not a Local Provider Admitting Clinician: Gale Valiente CNM Attending Physician on discharge: Geno Kent APRN, CNM DS: Diagnosis Discharge Diagnosis (1) care and examination immediately after delivery: Status: Acute (2) Lactating mother: Status: Acute (3) Generalized anxiety disorder: Status: Acute Exam Narrative: Exam Narrative: GENERAL APPEARANCE:? normal affect, alert, no distress MOOD:? appropriate CHEST:? clear to auscultation HEART:? regular rate and rhythm ABDOMEN:? soft, non-tender the uterine fundus is At Umbilicus, Midline and is appropriate for the stage of recovery. PERINEUM:? mild edema of the perineum. LOCHIA: scant EXTREMITIES:? normal and no edema Const: Vital Signs, click to edit/add: Vital Signs - 24 hr 11/11/23 13:31 11/11/23 20:59 11/12/23 03:25 Temperature 97.7 F 97.5 F L Pulse Rate [Pulse Oximeter] 87 76 64 Respiratory Rate 16 16 16 Blood Pressure [Le ft Arm] 106/72 110/72 122/83 Pulse Oximetry 96 96 95 Oxygen Delivery Me thod Room Air Room Air Room Air 11/12/23 08:10 Temperature 97.8 F Pulse Rate [Pulse Oximeter] 73 Respiratory Rate 16 Blood Pressure [Le ft Arm] 117/78 Pulse Oximetry 98 Oxygen Delivery Me thod Room Air Documenting provider has reviewed patient's vital signs: yes OB - DS: Summary Hospital Course Hospital Course: Kimberly is a 38 y.o. G 2 P 2 who was admitted to L & D for induction of labor for post-dates. ?She had a NVD that was complicated by 50 second shoulder dystocia and prolonged 2nd stage of labor. The patient feels well. ?The pain is well controlled with current medications. ?She has no new complaints. ?She is breast feeding and reports things are going well. the patient has done well.? Vitals have been stable.? She has remained afebrile.? Has a good appetite, is tolerating a general diet. ?She is voiding without difficulty.? She is passing gas and has not had a bowel movement.? She is ambulating and denies any dizziness.? Has small amount of rubra lochia. She is planning NFP/condoms for prevention. Problems: none plan: Discharge home with baby. Follow up in 2 weeks and 6 weeks. , may see if needed Hgb 11.9. Peripartum Data Infant delivery method: Vaginal Laceration description: None Procedures: tubal ligation/salpingectomy complications: none Gender: Female Infant Discharge Plan: Home Status at Discharge Functional status at discharge: independent ambulation Overall status at discharge: patient is progressing back to baseline Time Spent with Patient Time attestation: Total time spent providing and/or coordinating discharge services: Time spent: Less than 30 minutes Discharge Plan Discharge Disposition: Home, Self-Care Date of Admission: 11/09/23 07:18 Attending Provider on Discharge: Geno Kent Primary Care Provider: Provider,Not a Local Condition: Stable Anticipated Discharge Date/Time: 11/12/23 12:00 Discharge Medications: New acetaminophen 500 mg Tablet 1,000 mg PO Q6H PRNQty: 0 0RF docusate sodium 100 mg Capsule 100 mg PO DAILY Qty: 90 0RF ibuprofen 600 mg Tablet 600 mg PO Q6H PRNQty: 60 0RF Continued prenat.vits,kristopher,[id number] Tablet 1 tab PO QDAY cetirizine [Zyrtec] 10 mg tablet 10 mg PO QDAY PRN fluticasone propionate [Flonase Allergy Relief] 50 mcg/actuation spray,suspension 2 spray intranasal QDAY Qty: 16 0RF Rx Instructions: administer into each nostril ferrous sulfate [Feosol] 325 mg (65 mg iron) tablet 325 mg PO QDAY citalopram 20 mg tablet 20 mg PO DAILY Qty: 90 3RF Discontinued aspirin 81 mg tablet,delayed release (DR/EC) 81 mg PO QDAY valacyclovir 500 mg tablet 500 mg PO QDAY Qty: 60 0RF Discharge Orders: Discharge Order (Routine); Ordered 11/12/23 Ordered By: Geno Kent Patient Education: OB Over the Counter Medication Information, OB Vaginal/Breast Feeding Additional Instructions: Discharge instructions were reviewed with the patient including signs and symptoms of infection and home going medications Nothing vaginally for 6 weeks: no tampons or intercourse Off Work or School for 6 weeks 2-week visit: discuss infant feeding concerns, review control options and screen for anxiety/depression. 6-week visit for an annual exam. consultation services are available to all mothers and babies for the first year after delivery.? To make an appointment, please call [phone]. Activity Level: Activity as Tolerated Discharge Diet: Regular Follow Up Appointments: [facility] [Provider Group] Forms: [employer] Info Instructions
== END 2023-11-12 11:49 | disposition home or self-care (01) | DRG 560 ==
PROVIDERS: Advanced Practice Midwife; Admitting Provider Advanced Practice Midwife; Visit Provider Advanced Practice Midwife
DX: O48.0 Post-term pregnancy (principal); O98.32 Other infections with a predominantly sexual mode of transmission complicating childbirth; A60.09 Herpesviral infection of other urogenital tract; O43.193 Other malformation of placenta, third trimester; Z3A.41 41 weeks gestation of pregnancy; Z37.0 Single live birth; O99.013 Anemia complicating pregnancy, third trimester; D64.9 Anemia, unspecified; O99.02 Anemia complicating childbirth; O99.344 Other mental disorders complicating childbirth; F41.9 Anxiety disorder, unspecified; O77.0 Labor and delivery complicated by meconium in amniotic fluid; O66.0 Obstructed labor due to shoulder dystocia
CPT/HCPCS: 36415; 59200; 85018; 85025; 86592; 86850; 86900; 86901; A9270; J7120